=== PATIENT | male | born 1960 | race Caucasian/White ===

== ENCOUNTER 2016-08-27 03:46 | Inpatient (IN) ==
[2016-08-27] MEDS ORDERED: XOPENEX 1.25 MG NEB STA (03:59)
[2016-08-27 04:21] LABS: BASOPHILS # (AUTO) 0.1 K/uL (0-0.2); BASOPHILS % (AUTO) 0.8 % (0.0-3.0); EOSINOPHILS % (AUTO) 8.4 % (0.0-7.0); HEMATOCRIT 29.8 % (42.0-52.0); IMMATURE GRANULOCYTE % (AUTO) 0.3 % (0.0-5.0); LYMPHOCYTES # (AUTO) 1.9 K/uL (0.60-3.4); LYMPHOCYTES % (AUTO) 16.3 (10.0-50.0); MEAN CORPUSCULAR HEMOGLOBIN 28.3 pg (27.0-31.0); MEAN CORPUSCULAR HGB CONC 33.6 (31.8-35.4); MEAN CORPUSCULAR VOLUME 84.4 fl (80.0-94.0); MONOCYTES # (AUTO) 0.9 K/uL (0.4-2.0); MONOCYTES % (AUTO) 7.8 (0-10); NEUTROPHILS # (AUTO) 7.8 K/ul (2.0-6.9); NEUTROPHILS % (AUTO) 66.4; PLATELET COUNT 325 10^3/uL (140-440); RED BLOOD COUNT 3.53 10^6/ul (4.70-6.10); WHITE BLOOD COUNT 11.72 K/ul (4.2-10.2)
[2016-08-27 04:34] LABS: ABG BASE EXCESS -1 (-2.0-2.0); ABG HCO3 23.1 (22.0-26.0); ABG PCO2 34.7 mmHg (35-45); ABG PH 7.432 (7.35-7.45); ABG TCO2 24 (22.0-28.0)
[2016-08-27 04:56] LABS: TROPONIN I 0.028 ng/ml (0.0000-0.4000)
[2016-08-27 05:03] LABS: CREATINE KINASE MB 4.7 ng/ml (0.0-3.6)
--- NOTE | 2016-08-27 05:04 | CT ---
EXAM: CT chest without intravenous contrast 08/27/2016. Sagittal and coronal reformatted images ob tained HISTORY: Dyspnea COMPARISON: 10/12/2014 FINDINGS: The heart size appears within normal limits. There is no pericardial effusion. Emphysema. Innumerable small nodular densities are present within both lungs. This is upper lobe predominant a nd slightly more prominent on the right. Nodular and subtle ground-glass densities involve all lobe s of both lungs. The appearance is suggestive of nodular interstitial pneumonia. There is no focal pulmonary consolidation. No pleural effusion or pneumothorax. . IMPRESSION: 1. Emphysema. 2. Bilateral nodular ground-glass infiltrates likely due to nodular interstitial pneumonia. 3. Follow-up would be of benefit following appropriate medical management to document resolution.
[2016-08-27 05:06] LABS: ALBUMIN 2.7 g/dL (3.4-5.0); ALBUMIN/GLOBULIN RATIO 0.59; BILIRUBIN,TOTAL 0.37 mg/dL (0.00-1.20); BUN/CREATININE RATIO 15.71; CALCIUM 8.4 mg/dL (8.2-10.2); CREATININE 1.4 mg/dL (0.60-1.10); TOTAL PROTEIN 7.3 g/dL (6.4-8.2)
--- NOTE | 2016-08-27 05:22 | ED.PDOC ---
General ED Provider: Dr. JOSSELINE FLORES-ER Chief Complaint: Shortness of Air Stated Complaint: im coughing up green sputum and sob0--dr harden started me on keflex .. Time Seen by Physician: 03:50 Mode of Arrival: Wheelchair Information Source: Patient Exam Limitations: No limitations Primary Care Provider: JOSSELINE FLORES Nursing and Triage Documentation Reviewed and Agree: Yes Respiratory Complaint Exam - Respiratory Complaint/Exam Onset/Duration: 5 days Symptoms Are: Still present Initial Severity: Mild Current Severity: Moderate Location: Chest Character: Reports: Productive cough Aggravating: Reports: URI Alleviating: Reports: None Associated Signs and Symptoms: Reports: Dyspnea, URI, Sore throat, Decreased oral intake. Denies: Rapid breathing, Fever, Chills, Chest pain, Pleuritic chest pain, Wheezing, Hemoptysis, Dizziness, Calf pain, Calf swelling, Edema, Nasal congestion, Sinus discomfort, Vomiting, Weight loss, Increased thirst, Increased appetite, Increased urination Related History: Reports: Similar episode History of Healthcare-Acquired Pneumonia: No Related Surgical History: Reports: Renal Failure Pulmonary Embolism Risk Factors: None Tuberculosis Risk Factors: Reports: Chronic Resp. Faliure Status Asthmaticus Risk Factors: Reports: None Home Oxygen Use: No Recent Stress Test: No Recent Echo/LV Function: No Current Antibiotic Use: Yes Current Asthma Medication Use: No Respiratory Distress: Mild Inadequate Respiratory Effort: No Dysphagia Present: No Stridor Present: No JVD Present: No Accessory Muscle Use: No Retractions: Not Present Diminished Breath Sounds: No Sinus Tenderness: None Grunting Respirations: No Kussmaul Respirations: No Differential Diagnoses: COPD Exacerbation, Pneumonia, Bronchitis Non-Traumatic Chest Pain Syncope: EKG Performed Review of Systems - Review Of Systems Constitutional: Reports: No symptoms Eyes: Reports: No symptoms Ears, Nose, Mouth, Throat: Reports: No symptoms Respiratory: Reports: Cough, Short of air, Wheezing Cardiac: Reports: No symptoms GI: Reports: No symptoms : Reports: No symptoms Musculoskeletal: Reports: No symptoms Skin: Reports: No symptoms Neurological: Reports: No symptoms Endocrine: Reports: No symptoms Hematologic/Lymphatic: Reports: No symptoms All Other Systems: Reviewed and Negative Past Medical History - Past Medical History Previously Healthy: Yes Endocrine: Reports: DM 2 Cardiovascular: Reports: None Respiratory: Reports: None Hematological: Reports: None Gastrointestinal: Reports: None Genitourinary: Reports: None Neuro/Psych: Reports: None Musculoskeletal: Reports: Other Cancer: Reports: None - Surgical History General Surgical History: Reports: None - Family History Family History: Reports: None - Social History Smoking Status: Former smoker, Chews tobacco Hx Substance Use: No Alcohol Screening: None Lives: With family - Immunizations Tetanus Shot up to Date: Yes Physical Exam - Physical Exam Appearance: Well-appearing, No pain distress, Well-nourished Eyes: JORY, EOMI, Conjunctiva clear ENT: Ears normal, Nose normal, Oropharynx normal Neck: Supple Respiratory: Airway patent, Breath sounds diminished, Crackles, Rhonchi Cardiovascular: RRR, Pulses normal, No rub, No murmur, Tachycardia GI/: Soft, Nontender, No masses, Bowel sounds normal, No Organomegaly Musculoskeletal: Normal strength Skin: Warm, Dry, Normal color Neurological: Sensation intact, Motor intact, Reflexes intact, Cranial nerves intact, Alert, Oriented Psychiatric: Affect appropriate, Mood appropriate Interpretation - Radiology Interpretation Radiology Interpretation By: Radiologist Radiology Results: Positive Exam Interpreted: CT Scan - EKG Interpretation Time of EKG #1: 05:25 Rate: Tachy Rhythm: Sinus Ectopy: None [place]: [place] ST Segment: Normal Critical Care Note - Critical Care Note Total Time (mins): 0 Course - Course Hematology/Chemistry: 08/27/16 04:15 08/27/16 04:15 Orders, Labs, Meds: Lab Review 08/27/16 08/27/16 08/27/16 03:57 04:15 04:35 WBC 11.72 H RBC 3.53 L Hgb 10.0 L Hct 29.8 L MCV 84.4 MCH 28.3 MCHC 33.6 RDW Coeff of [place]ison 15.3 H Plt Count 325 Immature Gran % (Auto) 0.3 Neut % (Auto) 66.4 Lymph % (Auto) 16.3 [place] % (Auto) 7.8 Eos % (Auto) 8.4 H Baso % (Auto) 0.8 Immature Gran # (Auto) 0.0 Neut # 7.8 H Lymph # 1.9 [place] # 0.9 Eos # 1.0 H Baso # 0.1 D-Dimer 1.04 Puncture Site Lb O2 Saturation 98.0 ABG pH 7.432 ABG pCO2 34.7 L ABG pO2 93.0 ABG HCO3 23.1 ABG Total CO2 24 ABG Base Excess -1 [place] Test + FiO2 % 21.0 Sodium 138 Potassium 4.0 Chloride 107 Carbon Dioxide 23 Anion Gap 12.0 BUN 22 H Creatinine 1.40 H Estimated GFR (MDRD) 52.00 BUN/Creatinine Ratio 15.71 Glucose 213 H Lactic Acid 10.4 Calcium 8.4 Total Bilirubin 0.37 AST 20 ALT 21 Alkaline Phosphatase 110 Total Creatine Kinase 240 CK-MB (CK-2) 4.7 H CK-MB (CK-2) % 1.92049 Troponin I 0.0280 B-Natriuretic Peptide 101 H Total Protein 7.3 Albumin 2.7 L Globulin 4.6 Albumin/Globulin Ratio 0.59 Orders Category Date Time Status ABG DRAW REQUEST Stat CARDIO 08/27/16 03:58 Completed EKG-(ED ONLY) Stat CARDIO 08/27/16 03:58 Completed NEBULIZER TREATMENT Stat CARDIO 08/27/16 03:59 Completed ABG Stat LAB 08/27/16 03:57 Completed BNP [B-TYPE NATRIURETIC PEPTIDE] Stat LAB 08/27/16 04:15 Completed CBC W/ AUTO DIFF Stat LAB 08/27/16 04:15 Completed COMPREHENSIVE METABOLIC PANEL Stat LAB 08/27/16 04:15 Completed CREATINE KINASE Stat LAB 08/27/16 04:15 Completed D-DIMER Stat LAB 08/27/16 04:15 Completed LACTIC ACID Stat LAB 08/27/16 04:35 Completed PROCALCITONIN Stat LAB 08/27/16 04:35 Received TROPONIN I Stat LAB 08/27/16 04:15 Completed Levalbuterol HCl [Xopenex 1.25 mg] MEDS 08/27/16 03:59 Discontinued 1 vial NEB ONCE STA CT CHEST W/O CONTRAST Stat RADS 08/27/16 03:59 Completed Medications Discontinued Medications Generic Name Dose Route Start Last Admin Trade Name Freq PRN Reason Stop Dose Admin Levalbuterol HCl 1 vial 08/27/16 03:59 08/27/16 04:32 Xopenex 1.25 Mg NEB 08/27/16 04:00 1 vial ONCE STA Administration Vital Signs: Temp Pulse Resp BP Pulse Ox 08/27/16 03:47 98.2 F 110 H 36 H 173/81 H 92 L Departure - Departure Time of Disposition: 05:25 Disposition: HOME SELF-CARE Discharge Problem: Pneumonia Qualifiers: Pneumonia type: due to unspecified organism Laterality: bilateral Lung location : unspecified part of lung Qualifier Code: (J18.9) Pneumonia, unspecified organism Instructions: Pneumonitis (ED) Condition: Fair Pt referred to PMD for follow-up: Yes Allergies/Adverse Reactions: Allergies Iodinated Contrast Media - Oral and Adverse Reaction (Verified 08/27/16 04:01) KIDNEYS FAIL Home Medications: Ambulatory Orders Sitagliptin Phosphate [Januvia] 25 mg PO DAILY 06/13/15 Aspirin [Aspirin EC] 81 mg PO DAILY 11/22/15 Atorvastatin Calcium [Lipitor] 5 mg PO BEDTIME 11/22/15 Acetaminophen [Tylenol] 650 mg PO Q4H PRN 08/27/16 Amoxicillin/Potassium Clav [Augmentin 875-125 mg Tab] 1 tab PO Q12HR 08/27/16 Ergocalciferol (Vitamin D2) [Drisdol] 50,000 unit PO MONTHLY 08/27/16 Furosemide [Lasix Tab] 20 mg PO QDAC 08/27/16 Glimepiride [Amaryl] 2 mg PO BID 08/27/16 Metoprolol Succinate [Toprol Xl] 75 mg PO DAILY 08/27/16 Oxycodone HCl/Acetaminophen [Oxycodon-Acetaminophen 7.5-325] 1 each PO Q6H PRN 08/27/16 Disposition Discussed With: Patient, Family
[2016-08-27] MEDS ORDERED: ROCEPHIN 1 GM in SODIUM CHLORIDE 100 ML IV SCH (05:30)
[2016-08-27] MEDS ORDERED: TYLENOL PO PRN (05:30)
[2016-08-27] MEDS ORDERED: DRISDOL PO SCH (05:30)
[2016-08-27] MEDS ORDERED: PERCOCET 7.5-325 PO PRN (05:30)
[2016-08-27 06:37] VITALS: BMI 30.2
[2016-08-27] MEDS: LASIX TAB PO SCH (07:25)
[2016-08-27] MEDS ORDERED: ROCEPHIN ONE (07:30)
[2016-08-27] MEDS: DUONEB NEB SCH ×4 (07:35→23:30)
[2016-08-27] MEDS ORDERED: TOPROL XL PO SCH (08:00)
[2016-08-27] MEDS: AMARYL PO SCH ×2 (08:30→16:35)
[2016-08-27] MEDS ORDERED: JANUVIA PO SCH (09:00)
[2016-08-27] MEDS: TOPROL XL PO SCH ×2 (09:10)
[2016-08-27] MEDS: JANUVIA PO SCH (09:10)
[2016-08-27] MEDS: LOVENOX SUBCUT SCH (09:10)
[2016-08-27] MEDS: ASPIRIN EC PO SCH (09:11)
[2016-08-27] MEDS: ZITHROMAX 500 MG in SODIUM CHLORIDE 250 ML IV SCH (09:12)
[2016-08-27] MEDS: LIPITOR PO SCH (20:41)
[2016-08-28] MEDS: DUONEB NEB SCH ×3 (05:03→17:05)
[2016-08-28] MEDS: LASIX TAB PO SCH (05:43)
[2016-08-28 05:48] LABS: BASOPHILS # (AUTO) 0.1 K/uL (0-0.2); BASOPHILS % (AUTO) 0.7 % (0.0-3.0); EOSINOPHILS % (AUTO) 11.4 % (0.0-7.0); HEMATOCRIT 27.2 % (42.0-52.0); IMMATURE GRANULOCYTE % (AUTO) 0.3 % (0.0-5.0); LYMPHOCYTES # (AUTO) 2.8 K/uL (0.60-3.4); LYMPHOCYTES % (AUTO) 32.5 (10.0-50.0); MEAN CORPUSCULAR HEMOGLOBIN 28.3 pg (27.0-31.0); MEAN CORPUSCULAR HGB CONC 33.1 (31.8-35.4); MEAN CORPUSCULAR VOLUME 85.5 fl (80.0-94.0); MONOCYTES # (AUTO) 0.8 K/uL (0.4-2.0); MONOCYTES % (AUTO) 8.6 (0-10); NEUTROPHILS # (AUTO) 4.1 K/ul (2.0-6.9); NEUTROPHILS % (AUTO) 46.5; PLATELET COUNT 299 10^3/uL (140-440); RED BLOOD COUNT 3.18 10^6/ul (4.70-6.10); WHITE BLOOD COUNT 8.71 K/ul (4.2-10.2)
[2016-08-28 06:09] LABS: ALBUMIN 2.4 g/dL (3.4-5.0); ALBUMIN/GLOBULIN RATIO 0.57; BILIRUBIN,TOTAL 0.27 mg/dL (0.00-1.20); BUN/CREATININE RATIO 12.4; CALCIUM 8.2 mg/dL (8.2-10.2); CREATININE 1.29 mg/dL (0.60-1.10); TOTAL PROTEIN 6.6 g/dL (6.4-8.2)
[2016-08-28] MEDS: ROCEPHIN 1 GM in SODIUM CHLORIDE 100 ML IV SCH (08:05)
[2016-08-28] MEDS: ASPIRIN EC PO SCH (08:55)
[2016-08-28] MEDS: TOPROL XL PO SCH ×2 (08:55)
[2016-08-28] MEDS: AMARYL PO SCH ×2 (08:55→17:14)
[2016-08-28] MEDS: JANUVIA PO SCH (09:02)
[2016-08-28] MEDS: LOVENOX SUBCUT SCH (09:03)
[2016-08-28] MEDS: ZITHROMAX 500 MG in SODIUM CHLORIDE 250 ML IV SCH (09:04)
[2016-08-28] MEDS: SODIUM CHLORIDE 1,000 ML IV SCH ×2 (13:27)
[2016-08-28] MEDS: LIPITOR PO SCH (20:19)
[2016-08-28] MEDS: ATIVAN PO SCH (21:11)
[2016-08-29] MEDS: DUONEB NEB SCH ×4 (00:05→18:07)
[2016-08-29] MEDS: LASIX TAB PO SCH (05:45)
[2016-08-29] MEDS: ROCEPHIN 1 GM in SODIUM CHLORIDE 100 ML IV SCH (08:04)
[2016-08-29] MEDS: AMARYL PO SCH ×2 (08:05→16:47)
[2016-08-29] MEDS: JANUVIA PO SCH (08:05)
[2016-08-29 08:06] LABS: ALBUMIN 2.3 g/dL (3.4-5.0); ALBUMIN/GLOBULIN RATIO 0.53; ANION GAP 11.7; BASOPHILS # (AUTO) 0.1 K/uL (0-0.2); BILIRUBIN,TOTAL 0.22 mg/dL (0.00-1.20); BUN/CREATININE RATIO 11.86; CALCIUM 8.6 mg/dL (8.2-10.2); CREATININE 1.18 mg/dL (0.60-1.10); EOSINOPHILS % (AUTO) 11.4 % (0.0-7.0); HEMATOCRIT 28.7 % (42.0-52.0); HEMOGLOBIN 9.3 g/dl (14.0-18.0); IMMATURE GRANULOCYTE % (AUTO) 0.5 % (0.0-5.0); LYMPHOCYTES % (AUTO) 23.1 (10.0-50.0); MEAN CORPUSCULAR HEMOGLOBIN 27.9 pg (27.0-31.0); MEAN CORPUSCULAR HGB CONC 32.4 (31.8-35.4); MEAN CORPUSCULAR VOLUME 86.2 fl (80.0-94.0); MONOCYTES # (AUTO) 0.8 K/uL (0.4-2.0); MONOCYTES % (AUTO) 9.2 (0-10); NEUTROPHILS # (AUTO) 4.8 K/ul (2.0-6.9); NEUTROPHILS % (AUTO) 54.8; PLATELET COUNT 331 10^3/uL (140-440); POTASSIUM 4.7 mmol/L (3.5-5.1); RED BLOOD COUNT 3.33 10^6/ul (4.70-6.10); TOTAL PROTEIN 6.6 g/dL (6.4-8.2); WHITE BLOOD COUNT 8.72 K/ul (4.2-10.2)
[2016-08-29] MEDS: ASPIRIN EC PO SCH (08:06)
[2016-08-29] MEDS: TOPROL XL PO SCH ×2 (08:07)
[2016-08-29] MEDS: LOVENOX SUBCUT SCH (08:08)
[2016-08-29] MEDS: ZITHROMAX 500 MG in SODIUM CHLORIDE 250 ML IV SCH (09:30)
[2016-08-29] MEDS: ATIVAN PO SCH (09:30)
[2016-08-29] MEDS: LIPITOR PO SCH (20:56)
[2016-08-30] MEDS: DUONEB NEB SCH ×4 (04:55→16:38)
[2016-08-30] MEDS: LASIX TAB PO SCH (05:40)
[2016-08-30 07:53] LABS: BASOPHILS # (AUTO) 0.1 K/uL (0-0.2); BASOPHILS % (AUTO) 0.7 % (0.0-3.0); EOSINOPHILS # (AUTO) 0.9 K/ul (0.0-0.7); EOSINOPHILS % (AUTO) 10.6 % (0.0-7.0); HEMATOCRIT 29.8 % (42.0-52.0); HEMOGLOBIN 9.7 g/dl (14.0-18.0); IMMATURE GRANULOCYTE % (AUTO) 0.5 % (0.0-5.0); LYMPHOCYTES # (AUTO) 2.6 K/uL (0.60-3.4); LYMPHOCYTES % (AUTO) 29.9 (10.0-50.0); MEAN CORPUSCULAR HEMOGLOBIN 28.1 pg (27.0-31.0); MEAN CORPUSCULAR HGB CONC 32.6 (31.8-35.4); MEAN CORPUSCULAR VOLUME 86.4 fl (80.0-94.0); MONOCYTES # (AUTO) 0.8 K/uL (0.4-2.0); MONOCYTES % (AUTO) 9.1 (0-10); NEUTROPHILS # (AUTO) 4.3 K/ul (2.0-6.9); NEUTROPHILS % (AUTO) 49.2; PLATELET COUNT 345 10^3/uL (140-440); RED BLOOD COUNT 3.45 10^6/ul (4.70-6.10); WHITE BLOOD COUNT 8.69 K/ul (4.2-10.2)
[2016-08-30] MEDS: AMARYL PO SCH ×2 (08:07→17:09)
[2016-08-30] MEDS: ROCEPHIN 1 GM in SODIUM CHLORIDE 100 ML IV SCH (08:07)
[2016-08-30] MEDS: ASPIRIN EC PO SCH (08:07)
[2016-08-30] MEDS: TOPROL XL PO SCH ×2 (08:08)
[2016-08-30] MEDS: JANUVIA PO SCH (08:08)
[2016-08-30] MEDS: ATIVAN PO SCH (08:11)
[2016-08-30] MEDS: LOVENOX SUBCUT SCH (08:11)
[2016-08-30 08:17] LABS: ALBUMIN 2.4 g/dL (3.4-5.0); ALBUMIN/GLOBULIN RATIO 0.52; ANION GAP 10.6; BILIRUBIN,TOTAL 0.24 mg/dL (0.00-1.20); BUN/CREATININE RATIO 11.71; CALCIUM 8.5 mg/dL (8.2-10.2); CREATININE 1.28 mg/dL (0.60-1.10); POTASSIUM 4.6 mmol/L (3.5-5.1)
--- NOTE | 2016-08-30 09:10 | DI ---
EXAM: Chest two views HISTORY: Follow up pneumonia COMPARISON: CT 08/27/2016 TECHNIQUE: Two views chest were performed FINDINGS: Minimal right upper lobe ground-glass nodularity. There is no pleural effusion or pneumo thorax. The heart is normal in size. The mediastinal contour is normal. There are no acute abnorm alities of the bones. IMPRESSION: Minimal right upper lobe ground-glass nodularity, likely corresponds with interstitial pneumonia described on CT. Recommend follow-up.
[2016-08-30] MEDS: ZITHROMAX 500 MG in SODIUM CHLORIDE 250 ML IV SCH (09:30)
[2016-08-30 17:42] VITALS: BP 156/88; TEMP 97.7
--- NOTE | 2016-10-15 11:10 | HP ---
CHIEF COMPLAINT: " I am short of breath and I'm coughing up stuff." DISCUSSION: This is a 56 year old gentleman with a history of chronic diabetic ulcer, type two diabetes, peripheral vascular disease who recently saw Dr. Qu[facility]. He has been coughing up some green sputum and had been very short of breath. At home he had had low grade fever as well. In the emergency department he was evaluate. X-ray did reveal evidence of pneumonia and because he has failed outpatient antibiotics he was admitted for IV antibiotic therapy and treatment of his pneumonia. MEDICATIONS: Januvia Coated Aspirin Lipitor Augment Lasix Amaryl Toprol Oxycodone ALLERGIES: Contrast dye PAST MEDICAL HISTORY: Type 2 diabetes Hyperlipidemia Peripheral vascular disease History of chronic diastolic congestive failure SURGICAL HISTORY: Diabetic foot ulcer with debridement SOCIAL HISTORY: The patient is and previous smoker, no alcohol or illicit drug use noted. FAMILY HISTORY: Review and thought not to be pertinent to discussion. REVIEW OF SYSTEMS: He has had no grade fevers, Chills, productive cough. Denies any chest pain except when coughing, no headaches, visual changes, tinnitus, hemoptysis, no abdominal pain, blood in the stool, urinary symptoms or seizures. PHYSICAL EXAMINATION: V/S: Temperature 100, respiration 18, pulse 113 and blood pressure 139/87 HEENT: Pupils are round. NECK: Supple. CHEST: Scattered bronchi with a few breaths. CARDIOVASCULAR: Regular rate and rhythm. ABDOMEN: Soft, nontender. EXTREMITIES: Distal extremities without cyanosis or edema. ASSESSMENT: 1. Pneumonia, non improved as outpatient PLAN: 1. Admission 2. Antibiotics 3. Bronchial dilators 4. Follow him clinically and radiographically 5. Please see orders. MTDD
--- NOTE | 2016-10-15 11:23 | DS ---
PRINCIPAL DIAGNOSIS: 1. Pneumonia not responding to outpatient treatment. DISCUSSION: This is a 56 year old gentleman with a history of chronic diabetic ulcer, type two diabetes, peripheral vascular disease who recently saw Dr. Quiles at the [facility]. He has been coughing up some green sputum and had been very short of breath. At home he had had low grade fever as well. In the emergency department he was evaluate. X-ray did reveal evidence of pneumonia and because he has failed outpatient antibiotics he was admitted for IV antibiotic therapy and treatment of his pneumonia. CLINICAL COURSE: The patient was admitted to my service. We continued IV antibiotics. Clinically he seemed to improve. His lungs sounds improved, his cough got better and he did defervesce. A chest x-ray was obtained in followup which did reveal just a minimal infiltrate otherwise unremarkable. His oximetries were stable. At this point we felt that patient was stable for discharge. He will be discharged with antibiotics and will followup in one week. Please see orders. MTDD
== END 2016-08-30 19:24 | disposition home or self-care (01) | DRG 194 ==
LOC: ED 03:46 → MEDSURG B 05:28
PROVIDERS: ADMIT Family Medicine; ATTEND Family Medicine
DX: J18.9 Pneumonia, unspecified organism (principal); L97.429 Non-pressure chronic ulcer of left heel and midfoot with unspecified severity; E11.621 Type 2 diabetes mellitus with foot ulcer; I73.9 Peripheral vascular disease, unspecified; R06.02 Shortness of breath; F17.220 Nicotine dependence, chewing tobacco, uncomplicated; Z79.84 Long term (current) use of oral hypoglycemic drugs; Z79.899 Other long term (current) drug therapy
CPT/HCPCS: 36415; 80053; 82550; 82553; 82803; 82962; 83605; 83880; 84145; 84484; 85025; 85379; 87070; 87081; 87186; 93005; 93010; 94640; 97802; 99284

== ENCOUNTER 2016-09-08 02:45 | Emergency (ER) ==
[2016-09-08] MEDS ORDERED: XOPENEX 1.25 MG NEB STA (02:51)
[2016-09-08 02:53] VITALS: BMI 32.8
[2016-09-08 02:57] LABS: ABG BASE EXCESS -3 (-2.0-2.0); ABG PCO2 42.2 mmHg (35-45); ABG PH 7.342 (7.35-7.45)
[2016-09-08 02:58] LABS: ABG HCO3 22.9 (22.0-26.0); ABG TCO2 24 (22.0-28.0)
[2016-09-08 03:08] LABS: BASOPHILS # (AUTO) 0.1 K/uL (0-0.2); BASOPHILS % (AUTO) 0.9 % (0.0-3.0); EOSINOPHILS # (AUTO) 0.9 K/ul (0.0-0.7); EOSINOPHILS % (AUTO) 8.7 % (0.0-7.0); HEMATOCRIT 31.1 % (42.0-52.0); HEMOGLOBIN 10.4 g/dl (14.0-18.0); IMMATURE GRANULOCYTE % (AUTO) 0.3 % (0.0-5.0); LYMPHOCYTES # (AUTO) 2.7 K/uL (0.60-3.4); LYMPHOCYTES % (AUTO) 26.4 (10.0-50.0); MEAN CORPUSCULAR HEMOGLOBIN 28.3 pg (27.0-31.0); MEAN CORPUSCULAR HGB CONC 33.4 (31.8-35.4); MEAN CORPUSCULAR VOLUME 84.7 fl (80.0-94.0); MONOCYTES # (AUTO) 0.9 K/uL (0.4-2.0); MONOCYTES % (AUTO) 8.6 (0-10); NEUTROPHILS # (AUTO) 5.5 K/ul (2.0-6.9); NEUTROPHILS % (AUTO) 55.1; PLATELET COUNT 284 10^3/uL (140-440); RED BLOOD COUNT 3.67 10^6/ul (4.70-6.10); WHITE BLOOD COUNT 10.06 K/ul (4.2-10.2)
[2016-09-08] MEDS ORDERED: DUONEB NEB STA (03:17)
[2016-09-08 03:45] LABS: ALANINE AMINOTRANSFERASE 21 U/L (12-78); ALBUMIN 2.7 g/dL (3.4-5.0); ALBUMIN/GLOBULIN RATIO 0.59; ALKALINE PHOSPHATASE 109 U/L (50-136); ANION GAP 10.4; ASPARTATE AMINO TRANSFERASE 19 U/L (15-37); BILIRUBIN,TOTAL 0.32 mg/dL (0.00-1.20); BLOOD UREA NITROGEN 19 mg/dL (7-18); BUN/CREATININE RATIO 12.41; CALCIUM 9.1 mg/dL (8.2-10.2); CARBON DIOXIDE 24 mmol/L (21-32); CHLORIDE 108 mmol/L (98-107); CREATINE KINASE 158 U/L; CREATINE KINASE MB 4.3 ng/ml (0.0-3.6); CREATININE 1.53 mg/dL (0.60-1.10); GLUCOSE 145 mg/dL (70-100); POTASSIUM 4.4 mmol/L (3.5-5.1); SODIUM 138 mmol/L (136-145); TOTAL PROTEIN 7.3 g/dL (6.4-8.2)
--- NOTE | 2016-09-08 03:46 | CT ---
Exam: CT of the chest without contrast History: Dyspnea, recent pneumonia Technique: [address] of the chest with multiplanar reformations FINDINGS: The lung windows show mild apical emphysematous change. Subtle bilateral patchy ground-g lass opacities unchanged from 08/27/2016. No consolidative opacities are seen. No developing opaci ties since prior. No pleural fluid or septal thickening. Atherosclerotic calcification of the aort a without aneurysm. No pathologic lymph node enlargement or abundance. No acute findings of the ch est wall soft tissues or bony thorax. No acute findings of the upper abdomen. Impression: 1. Mild emphysematous change 2. Bilateral subtle patchy ground-glass opacities not significantly changed from 08/27/2016. No john perimposed consolidative opacities. Overall nonspecific finding could represent refractory infectio us pneumonia versus other chronic underlying lung disease.
[2016-09-08] MEDS ORDERED: DECADRON 4 MG/ML SDV IVP STA (03:55)
[2016-09-08] MEDS ORDERED: VANCOMYCIN 1 GM in SODIUM CHLORIDE 250 ML IV STA (03:56)
--- NOTE | 2016-09-08 05:15 | ED.PDOC ---
General ED Provider: Dr. JOSSELINE FLORES-ER Chief Complaint: Shortness of Air Stated Complaint: im coughing up thick stuff ..its green Time Seen by Physician: 02:50 Mode of Arrival: Wheelchair Information Source: Patient, Family Exam Limitations: No limitations Primary Care Provider: JOSSELINE FLORES Nursing and Triage Documentation Reviewed and Agree: Yes Respiratory Complaint Exam - Respiratory Complaint/Exam Onset/Duration: 2 days Symptoms Are: Still present Timing: Intermittent Initial Severity: Mild Current Severity: Mild Location: Chest Character: Reports: Productive cough Aggravating: Reports: URI Alleviating: Reports: None Associated Signs and Symptoms: Reports: Dyspnea, URI. Denies: Rapid breathing, Fever, Chills, Chest pain, Pleuritic chest pain, Wheezing, Hemoptysis, Dizziness , Calf pain, Calf swelling, Edema, Nasal congestion, Hoarseness, Sinus discomfort, Vomiting, Sore throat, Weight loss, Decreased oral intake, Increased thirst, Increased appetite, Increased urination Related History: Reports: Similar episode History of Healthcare-Acquired Pneumonia: Admit w/in last 30 days Related Surgical History: Reports: Renal Failure Pulmonary Embolism Risk Factors: None Cardiac Risk Factors: Reports: Elevated lipids, Diabetes, Hypertension Pseudomonas Risk Factors: Reports: None Tuberculosis Risk Factors: Reports: None Status Asthmaticus Risk Factors: Reports: None Home Oxygen Use: No Recent Stress Test: No Recent Echo/LV Function: No Current Antibiotic Use: Yes Current Asthma Medication Use: No Respiratory Distress: None Inadequate Respiratory Effort: No Dysphagia Present: No Stridor Present: No JVD Present: No Accessory Muscle Use: No Retractions: Not Present Diminished Breath Sounds: No Sinus Tenderness: None Grunting Respirations: No Kussmaul Respirations: No Differential Diagnoses: CHF, Pulmonary Edema, COPD Exacerbation, Pneumonia, Bronchitis Non-Traumatic Chest Pain Syncope: EKG Performed Review of Systems - Review Of Systems Constitutional: Reports: No symptoms Eyes: Reports: No symptoms Ears, Nose, Mouth, Throat: Reports: No symptoms Respiratory: Reports: Cough Cardiac: Reports: No symptoms GI: Reports: No symptoms : Reports: No symptoms Musculoskeletal: Reports: No symptoms Skin: Reports: No symptoms Neurological: Reports: No symptoms Endocrine: Reports: No symptoms Hematologic/Lymphatic: Reports: No symptoms All Other Systems: Reviewed and Negative Past Medical History - Past Medical History Previously Healthy: Yes Endocrine: Reports: DM 2 Cardiovascular: Reports: None Respiratory: Reports: None Hematological: Reports: None Gastrointestinal: Reports: None Genitourinary: Reports: None Neuro/Psych: Reports: None Musculoskeletal: Reports: Other Cancer: Reports: None - Surgical History General Surgical History: Reports: None - Family History Family History: Reports: None - Social History Smoking Status: Former smoker, Chews tobacco Hx Substance Use: No Alcohol Screening: None Lives: With family - Immunizations Tetanus Shot up to Date: Yes Physical Exam - Physical Exam Appearance: Well-appearing, No pain distress, Well-nourished Eyes: JORY, EOMI, Conjunctiva clear ENT: Ears normal, Nose normal, Oropharynx normal Neck: Supple Respiratory: Crackles, Rhonchi Cardiovascular: RRR, Pulses normal, No rub, No murmur GI/: Soft, Nontender, No masses, Bowel sounds normal, No Organomegaly Musculoskeletal: Normal strength, ROM intact, No edema, No calf tenderness Skin: Warm, Dry, Normal color Neurological: Sensation intact, Motor intact, Reflexes intact, Cranial nerves intact, Alert, Oriented Psychiatric: Affect appropriate Interpretation - Radiology Interpretation Radiology Interpretation By: Radiologist Radiology Results: Positive Exam Interpreted: CT Scan ("ground glass opacities") Re-Evaluation - Re-Evaluation Time of Re-Evaluation: 05:15 Status: Improved Vital Signs Stable: Yes Pain Level: 0 Appearance: NAD Lungs: Clear Skin: Warm and Dry Neuro: Alert and Oriented X3 CV: RRR Critical Care Note - Critical Care Note Total Time (mins): 0 Course - Course Hematology/Chemistry: 09/08/16 03:08 09/08/16 03:08 Orders, Labs, Meds: Lab Review 09/08/16 09/08/16 02:49 03:08 WBC 10.06 RBC 3.67 L Hgb 10.4 L Hct 31.1 L MCV 84.7 MCH 28.3 MCHC 33.4 RDW Coeff of [place]ison 15.0 H Plt Count 284 Immature Gran % (Auto) 0.3 Neut % (Auto) 55.1 Lymph % (Auto) 26.4 [place] % (Auto) 8.6 Eos % (Auto) 8.7 H Baso % (Auto) 0.9 Immature Gran # (Auto) 0.0 Neut # 5.5 Lymph # 2.7 [place] # 0.9 Eos # 0.9 H Baso # 0.1 D-Dimer 1.00 Puncture Site Rr O2 Saturation 91.0 L ABG pH 7.342 L ABG pCO2 42.2 ABG pO2 66.0 L ABG HCO3 22.9 ABG Total CO2 24 ABG Base Excess -3 L [place] Test + FiO2 % 21.0 Sodium 138 Potassium 4.4 Chloride 108 H Carbon Dioxide 24 Anion Gap 10.4 BUN 19 H Creatinine 1.53 H Estimated GFR (MDRD) 47.00 BUN/Creatinine Ratio 12.41 Glucose 145 H Calcium 9.1 Total Bilirubin 0.32 AST 19 ALT 21 Alkaline Phosphatase 109 Total Creatine Kinase 158 CK-MB (CK-2) 4.3 H CK-MB (CK-2) % 2.32364 Troponin I < 0.0100 B-Natriuretic Peptide 91 Total Protein 7.3 Albumin 2.7 L Globulin 4.6 Albumin/Globulin Ratio 0.59 Orders Category Date Time Status ABG DRAW REQUEST Stat CARDIO 09/08/16 02:49 Completed EKG-(ED ONLY) Stat CARDIO 09/08/16 02:49 Completed NEBULIZER TREATMENT Stat CARDIO 09/08/16 02:51 Completed NEBULIZER TREATMENT Stat CARDIO 09/08/16 03:17 Completed Brake Lining Curer [ED SHIFT SUPERVISOR RN APPLIED] .ONCE EMERGENCY 09/08/16 02:50 Active IV [ED IV/MEDIPORT/POWERPORT] .ONCE EMERGENCY 09/08/16 03:14 Active ABG Stat LAB 09/08/16 02:49 Completed BNP [B-TYPE NATRIURETIC PEPTIDE] Stat LAB 09/08/16 03:08 Completed CBC W/ AUTO DIFF Stat LAB 09/08/16 03:08 Completed COMPREHENSIVE METABOLIC PANEL Stat LAB 09/08/16 03:08 Completed CREATINE KINASE Stat LAB 09/08/16 03:08 Completed D-DIMER Stat LAB 09/08/16 03:08 Completed TROPONIN I Stat LAB 09/08/16 03:08 Completed 0.9 % Sodium Chloride [Saline Flush] MEDS 09/08/16 03:14 Ordered 1 syr IVF PRN PRN Dexamethasone 4 mg/ml Inj [Decadron 4 mg/ml Sdv] MEDS 09/08/16 03:55 Discontinued 4 mg IVP ONCE STA Ipratropium/Albuterol Neb [Duoneb] MEDS 09/08/16 03:17 Discontinued 1 vial NEB ONCE STA Levalbuterol HCl [Xopenex 1.25 mg] MEDS 09/08/16 02:51 Discontinued 1 vial NEB ONCE STA Vancomycin HCl [Vancomycin] 1 gm MEDS 09/08/16 03:56 Discontinued 0.9 % Sodium Chloride [Sodium Chloride] [address] CHEST W/O CONTRAST Stat RADS 09/08/16 03:14 Completed Medications Generic Name Dose Route Start Last Admin Trade Name Freq PRN Reason Stop Dose Admin Sodium Chloride 1 syr 09/08/16 03:14 09/08/16 04:07 Saline Flush IVF 1 syr PRN PRN Administration To flush IV Discontinued Medications Generic Name Dose Route Start Last Admin Trade Name Freq PRN Reason Stop Dose Admin Albuterol/Ipratropium 1 vial 09/08/16 03:17 09/08/16 03:30 Duoneb NEB 09/08/16 03:18 1 vial ONCE STA Administration Dexamethasone Sodium Phosphate 4 mg 09/08/16 03:55 09/08/16 04:05 Decadron 4 Mg/Ml Sdv IVP 09/08/16 03:56 4 mg ONCE STA Administration Vancomycin HCl 1 gm/ Sodium 250 mls @ 250 mls/hr 09/08/16 03:56 09/08/16 04: 15 Chloride IV 09/08/16 04:55 250 mls/hr ONCE STA Administration Levalbuterol HCl 1 vial 09/08/16 02:51 09/08/16 03:12 Xopenex 1.25 Mg NEB 09/08/16 02:52 1 vial ONCE STA Administration Vital Signs: Temp Pulse Resp BP Pulse Ox 09/08/16 02:46 98.2 F 104 H 32 H 189/103 H 91 L Departure - Departure Time of Disposition: 05:16 Disposition: TSF SHORT-TRM HOSP Discharge Problem: Acute respiratory failure Qualifiers: Respiratory failure complication: hypoxia Qualifier Code: (J96.01) Acute respiratory failure with hypoxia Pneumonia Qualifiers: Pneumonia type: due to unspecified organism Laterality: bilateral Lung location : unspecified part of lung Qualifier Code: (J18.9) Pneumonia, unspecified organism Instructions: Pneumonitis (ED) Condition: Fair Pt referred to PMD for follow-up: No Allergies/Adverse Reactions: Allergies Iodinated Contrast Media - Oral and Adverse Reaction (Verified 09/08/16 02:53) KIDNEYS FAIL Home Medications: Ambulatory Orders Sitagliptin Phosphate [Januvia] 25 mg PO DAILY 06/13/15 Aspirin [Aspirin EC] 81 mg PO DAILY 11/22/15 Atorvastatin Calcium [Lipitor] 5 mg PO BEDTIME 11/22/15 Acetaminophen [Tylenol] 650 mg PO Q4H PRN 08/27/16 Amoxicillin/Potassium Clav [Augmentin 875-125 mg Tab] 1 tab PO Q12HR 08/27/16 Ergocalciferol (Vitamin D2) [Drisdol] 50,000 unit PO MONTHLY 08/27/16 Furosemide [Lasix Tab] 20 mg PO QDAC 08/27/16 Glimepiride [Amaryl] 2 mg PO BID 08/27/16 Metoprolol Succinate [Toprol Xl] 75 mg PO DAILY 08/27/16 Oxycodone HCl/Acetaminophen [Oxycodon-Acetaminophen 7.5-325] 1 each PO Q6H PRN 08/27/16 Transfer Form Completed: Yes Disposition Discussed With: Patient, Family
[2016-09-08] MEDS ORDERED: SODIUM CHLORIDE 1,000 ML IV STA (05:23)
[2016-09-08 05:33] VITALS: BP 146/76; TEMP 98.6
== END 2016-09-08 06:05 | disposition short-term general hospital (02) ==
LOC: ED 02:45
DX: J96.01 Acute respiratory failure with hypoxia (principal); J18.9 Pneumonia, unspecified organism; E78.5 Hyperlipidemia, unspecified; E11.9 Type 2 diabetes mellitus without complications; I10 Essential (primary) hypertension; F17.220 Nicotine dependence, chewing tobacco, uncomplicated; Z79.899 Other long term (current) drug therapy
CPT/HCPCS: 36415; 80053; 82550; 82553; 82803; 83880; 84484; 85025; 85379; 93005; 93010; 94640; 96365; 96375; 99285

== ENCOUNTER 2016-09-23 08:14 | Emergency (ER) ==
--- NOTE | 2016-09-23 08:20 | ED.PDOC ---
General ED Provider: Dr. LINETTE WILSON JR Chief Complaint: Respiratory Complaint Stated Complaint: has soa-- states had to sleep sitting up past 3 nites-- recent pneumonia--states he feels like he might choke due to large amts thick mucous--also has wound to left foot due to diabetic ulcer-color pale--resp labored. [ End ]97.4 108 28 91% 178/96 11/28. 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 Appendectomy at 12 years old. HERNIA. LEFT FOOT/HEEL, SKIN GRAFT, BONE REMOVAL. [ End ]. dm anem chf footulcer. Transfered to [facility] room [address] Aponte. Report called to Isabel. IV NS infusing at 40 ml/hr, O2 at 2L per [place][End]09 08 16. doing better; no fever or dyspnea; states still coughing up yellow; states has not made follow up due to dr. aponte informing him to wait until after is visit with other md. encouraged to make follow up to ensure getting over pneumonia. [ End]09/03/16 Time Seen by Physician: 08:28 Mode of Arrival: Walk-In Information Source: Patient, Family Exam Limitations: No limitations, Clinical condition Primary Care Provider: JOSSELINE APONTE Nursing and Triage Documentation Reviewed and Agree: No Review of Systems - Review Of Systems Constitutional: Reports: Chills, Malaise Eyes: Reports: No symptoms Ears, Nose, Mouth, Throat: Reports: Nose discharge Respiratory: Reports: Cough (productive), Short of air, Wheezing Cardiac: Reports: No symptoms GI: Reports: No symptoms : Reports: No symptoms Musculoskeletal: Reports: No symptoms Skin: Reports: No symptoms Neurological: Reports: No symptoms Endocrine: Reports: No symptoms Hematologic/Lymphatic: Reports: No symptoms All Other Systems: Other (note foot ulcer) Past Medical History - Past Medical History Previously Healthy: Yes Endocrine: Reports: DM 2 Cardiovascular: Reports: None Respiratory: Reports: None Hematological: Reports: None Gastrointestinal: Reports: None Genitourinary: Reports: None Neuro/Psych: Reports: None Musculoskeletal: Reports: Other Cancer: Reports: None - Surgical History General Surgical History: Reports: None - Family History Family History: Reports: None - Social History Smoking Status: Former smoker, Chews tobacco Hx Substance Use: No Alcohol Screening: None Physical Exam - Physical Exam Appearance: Ill-appearing, Thin Ill-appearing: Moderate Pain Distress: Moderate Neck: Supple Respiratory: Airway patent, Breath sounds diminished, Rhonchi Cardiovascular: RRR, Tachycardia GI/: Soft, Nontender Musculoskeletal: Normal strength, ROM intact, No edema Skin: Warm, Dry (note left footbandaged) Psychiatric: Anxious Interpretation - EKG Interpretation Time of EKG #1: 08:35 Rate: Tachy Rhythm: Sinus [place]: Left ST Segment: Other (old ant [place]) Re-Evaluation - Re-Evaluation Time of Re-Evaluation: 10:11 Status: Improved Critical Care Note - Critical Care Note Total Time (mins): 20 Course - Course Hematology/Chemistry: 09/23/16 09:00 09/23/16 09:00 Orders, Labs, Meds: Lab Review 09/23/16 09/23/16 08:34 09:00 WBC 12.84 H RBC 3.50 L Hgb 10.0 L Hct 30.6 L MCV 87.4 MCH 28.6 MCHC 32.7 RDW Coeff of Addison 14.4 Plt Count 314 Immature Gran % (Auto) 0.5 Neut % (Auto) 69.1 Lymph % (Auto) 16.6 [place] % (Auto) 6.5 Eos % (Auto) 6.7 Baso % (Auto) 0.6 Immature Gran # (Auto) 0.1 Neut # 8.9 H Lymph # 2.1 [place] # 0.8 Eos # 0.9 H Baso # 0.1 Puncture Site Rr O2 Saturation 88.0 L ABG pH 7.331 L ABG pCO2 42.8 ABG pO2 59.0 L* ABG HCO3 22.6 ABG Total CO2 24 ABG Base Excess -3 L Mayito Test + FiO2 % 21.0 Sodium 138 Potassium 4.1 Chloride 105 Carbon Dioxide 25 Anion Gap 12.1 BUN 19 H Creatinine 1.80 H Estimated GFR (MDRD) 39.00 BUN/Creatinine Ratio 10.55 Glucose 156 H Lactic Acid 10.8 Calcium 8.9 Total Bilirubin 0.36 AST 27 ALT 27 Alkaline Phosphatase 109 Total Creatine Kinase 380 CK-MB (CK-2) 9.7 H* CK-MB (CK-2) % 2.36443 Troponin I 0.0150 B-Natriuretic Peptide 70 Total Protein 8.0 Albumin 2.7 L Globulin 5.3 Albumin/Globulin Ratio 0.51 Orders Category Date Time Status ABG DRAW REQUEST Stat CARDIO 09/23/16 08:35 Completed EKG-(ED ONLY) Stat CARDIO 09/23/16 08:33 Completed NEBULIZER TREATMENT Stat CARDIO 09/23/16 08:35 Completed ED APPLY O2 .ONCE EMERGENCY 09/23/16 08:33 Active ED 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 APPLIED .ONCE EMERGENCY 09/23/16 08:33 Active ED IV/MEDIPORT/POWERPORT .ONCE EMERGENCY 09/23/16 08:33 Active IV [ED IV/MEDIPORT/POWERPORT] .ONCE EMERGENCY 09/23/16 08:47 Inactive ABG Stat LAB 09/23/16 08:34 Completed B-TYPE NATRIURETIC PEPTIDE Stat LAB 09/23/16 09:00 Completed BLOOD CULTURE Stat LAB 09/23/16 09:00 Received CBC W/ AUTO DIFF Stat LAB 09/23/16 09:00 Completed COMPREHENSIVE METABOLIC PANEL Stat LAB 09/23/16 09:00 Completed CREATINE KINASE Stat LAB 09/23/16 09:00 Completed LACTIC ACID Stat LAB 09/23/16 09:00 Completed PROCALCITONIN Stat LAB 09/23/16 09:00 Received SPUTUM CULTURE Stat LAB 09/23/16 09:10 Received TROPONIN I Stat LAB 09/23/16 09:00 Completed 0.9 % Sodium Chloride [Saline Flush] MEDS 09/23/16 08:33 Active 1 syr IVF PRN PRN 0.9 % Sodium Chloride [Saline Flush] MEDS 09/23/16 08:47 Active 1 syr IVF PRN PRN Dexamethasone 4 mg/ml Inj [Decadron 4 mg/ml Sdv] MEDS 09/23/16 09:01 Discontinued 4 mg IVP ONCE STA Ipratropium/Albuterol Neb [Duoneb] MEDS 09/23/16 08:35 Discontinued 1 vial NEB ONCE STA Piperacillin Sodium/Tazobactam [Zosyn 4.5 gm] 4.5 gm MEDS 09/23/16 08:39 Discontinued 0.9 % Sodium Chloride [Sodium Chloride] 100 ml IV ONCE CHEST, 1V AP ONLY Stat RADS 09/23/16 08:33 Completed Medications Generic Name Dose Route Start Last Admin Trade Name Freq PRN Reason Stop Dose Admin Sodium Chloride 1 syr 09/23/16 08:33 09/23/16 09:18 Saline Flush IVF 1 syr PRN PRN Administration To flush IV Sodium Chloride 1 syr 09/23/16 08:47 Saline Flush IVF PRN PRN To flush IV Discontinued Medications Generic Name Dose Route Start Last Admin Trade Name Madonna PRN Reason Stop Dose Admin Albuterol/Ipratropium 1 vial 09/23/16 08:35 09/23/16 08:42 Duoneb NEB 09/23/16 08:36 1 vial ONCE STA Administration Dexamethasone Sodium Phosphate 4 mg 09/23/16 09:01 09/23/16 09:23 Decadron 4 Mg/Ml Sdv IVP 09/23/16 09:02 4 mg ONCE STA Administration Piperacillin Sod/Tazobactam 100 mls @ 100 mls/hr 09/23/16 08:39 09/23/16 09: 24 Sod 4.5 gm/ Sodium Chloride IV 09/23/16 09:38 100 mls/hr ONCE STA Administration Vital Signs: Temp Pulse Resp BP Pulse Ox 09/23/16 08:14 97.4 F L 108 H 28 H 178/96 H 91 L Departure - Departure Time of Disposition: 10:11 Disposition: HOME SELF-CARE Discharge Problem: Unresolved pneumonia Pneumonia involving right lung Qualifiers: Pneumonia type: due to unspecified organism Lung location: upper lobe of lung Qualifier Code: (J18.1) Lobar pneumonia, unspecified organism Instructions: Bacterial Pneumonia (ED) Condition: Good Pt referred to PMD for follow-up: Yes Additional Instructions: May use Duoneb instead of albuterol(not both) call PMD discuss follow up time return if fever over 101.0 if worsening shortness of breath antibiotic until gone Prescriptions: Amoxicillin/Potassium Clav [Augmentin 875-125 mg Tab] 1 tab PO BIDWM #14 tablet Ipratropium/Albuterol Neb [Duoneb] 1 vial NEB RTQ4H PRN #90 vial.neb PRN Reason: wheezing, while awake Allergies/Adverse Reactions: Allergies Iodinated Contrast Media - Oral and Adverse Reaction (Verified 09/23/16 08:28) KIDNEYS FAIL Home Medications: Ambulatory Orders Sitagliptin Phosphate [Januvia] 25 mg PO DAILY 06/13/15 Aspirin [Aspirin EC] 81 mg PO DAILY 11/22/15 Atorvastatin Calcium [Lipitor] 5 mg PO BEDTIME 11/22/15 Acetaminophen [Tylenol] 650 mg PO Q4H PRN 08/27/16 Ergocalciferol (Vitamin D2) [Drisdol] 50,000 unit PO MONTHLY 08/27/16 Furosemide [Lasix Tab] 20 mg PO QDAC 08/27/16 Glimepiride [Amaryl] 2 mg PO BID 08/27/16 Metoprolol Succinate [Toprol Xl] 75 mg PO DAILY 08/27/16 Oxycodone HCl/Acetaminophen [Oxycodon-Acetaminophen 7.5-325] 1 each PO Q6H PRN 08/27/16 Albuterol Sulfate 0.083% Neb [Albuterol 0.083% Neb] 1 vial NEB RTQ8H 09/23/16 Amoxicillin/Potassium Clav [Augmentin 875-125 mg Tab] 1 tab PO BIDWM #14 tablet 09/23/16 Ipratropium/Albuterol Neb [Duoneb] 1 vial NEB RTQ4H PRN #90 vial.neb 09/23/16 Levofloxacin [Levaquin] 500 mg PO QDAC 09/23/16
[2016-09-23 08:23] VITALS: BP 178/96; TEMP 97.4; BMI 31.4
[2016-09-23] MEDS ORDERED: DUONEB NEB STA ×2 (08:35→11:02)
[2016-09-23] MEDS ORDERED: ZOSYN 4.5 GM 4.5 GM in SODIUM CHLORIDE 100 ML IV STA (08:39)
[2016-09-23 08:50] LABS: ABG PH 7.331 (7.35-7.45)
[2016-09-23 08:51] LABS: ABG PCO2 42.8 mmHg (35-45)
[2016-09-23 08:52] LABS: ABG BASE EXCESS -3 (-2.0-2.0); ABG HCO3 22.6 (22.0-26.0); ABG TCO2 24 (22.0-28.0)
[2016-09-23] MEDS ORDERED: DECADRON 4 MG/ML SDV IVP STA (09:01)
[2016-09-23 09:03] LABS: BASOPHILS # (AUTO) 0.1 K/uL (0-0.2); BASOPHILS % (AUTO) 0.6 % (0.0-3.0); EOSINOPHILS # (AUTO) 0.9 K/ul (0.0-0.7); EOSINOPHILS % (AUTO) 6.7 % (0.0-7.0); HEMATOCRIT 30.6 % (42.0-52.0); IMMATURE GRANULOCYTE % (AUTO) 0.5 % (0.0-5.0); LYMPHOCYTES # (AUTO) 2.1 K/uL (0.60-3.4); LYMPHOCYTES % (AUTO) 16.6 (10.0-50.0); MEAN CORPUSCULAR HEMOGLOBIN 28.6 pg (27.0-31.0); MEAN CORPUSCULAR HGB CONC 32.7 (31.8-35.4); MEAN CORPUSCULAR VOLUME 87.4 fl (80.0-94.0); MONOCYTES # (AUTO) 0.8 K/uL (0.4-2.0); MONOCYTES % (AUTO) 6.5 (0-10); NEUTROPHILS # (AUTO) 8.9 K/ul (2.0-6.9); NEUTROPHILS % (AUTO) 69.1; PLATELET COUNT 314 10^3/uL (140-440); WHITE BLOOD COUNT 12.84 K/ul (4.2-10.2)
[2016-09-23] MEDS ORDERED: ZOSYN 4.5 GM 4.5 GM in SODIUM CHLORIDE 100 ML IV ONE (09:24)
--- NOTE | 2016-09-23 09:35 | DI ---
EXAM: Single AP view of the chest HISTORY: Chest pain. COMPARISON: Chest x-ray 08/30/[address] chest 09/08/2016 FINDINGS: Cardiomediastinal silhouette is unremarkable. There is no pneumothorax or pleural effusio n. There is no consolidation, nodule or mass. The ground-glass in the medial right upper lobe has minimally improved. The osseous structures are unremarkable. IMPRESSION: 1. Mild interval improvement in right upper lobe ground-glass and pleural thickening. 2. No acute consolidation is present.
[2016-09-23 09:58] LABS: ALBUMIN 2.7 g/dL (3.4-5.0); ALBUMIN/GLOBULIN RATIO 0.51; ANION GAP 12.1; BILIRUBIN,TOTAL 0.36 mg/dL (0.00-1.20); BUN/CREATININE RATIO 10.55; CALCIUM 8.9 mg/dL (8.2-10.2); CREATININE 1.8 mg/dL (0.60-1.10); POTASSIUM 4.1 mmol/L (3.5-5.1); TROPONIN I 0.015 ng/ml (0.0000-0.4000)
[2016-09-23 10:02] LABS: CREATINE KINASE MB 9.7 ng/ml (0.0-3.6)
== END 2016-09-23 12:00 | disposition home or self-care (01) ==
LOC: ED 08:14
DX: J18.1 Lobar pneumonia, unspecified organism (principal); R00.0 Tachycardia, unspecified; E11.621 Type 2 diabetes mellitus with foot ulcer; L97.529 Non-pressure chronic ulcer of other part of left foot with unspecified severity; Z79.899 Other long term (current) drug therapy; F17.220 Nicotine dependence, chewing tobacco, uncomplicated
CPT/HCPCS: 36415; 80053; 82550; 82553; 82803; 83605; 83880; 84145; 84484; 85025; 87040; 87070; 93005; 93010; 94640; 96365; 96375; 99283

== ENCOUNTER 2016-10-02 04:05 | Emergency (ER) ==
[2016-10-02 04:20] VITALS: BP 135/75; TEMP 98; BMI 32.8
[2016-10-02] MEDS ORDERED: DUONEB NEB STA ×2 (04:28→07:54)
[2016-10-02] MEDS ORDERED: SOLU-MEDROL 125 MG IVP STA (04:28)
--- NOTE | 2016-10-02 04:32 | ED.PDOC ---
General ED Provider: Dr. KARON KATZ Chief Complaint: Shortness of Air Stated Complaint: Been coughing, congested, short of breath. Time Seen by Physician: 04:30 Mode of Arrival: Walk-In Information Source: Patient Primary Care Provider: JOSSELINE FLORES Nursing and Triage Documentation Reviewed and Agree: Yes Respiratory Complaint Exam - Shortness of Air Complaint/Exam Symptoms Are: Still present Timing: Constant Initial Severity: Moderate Current Severity: Moderate Character: Reports: Dyspnea at rest Aggravating: Reports: Allergens, URI Alleviating: Reports: None Associated Signs and Symptoms: Reports: Cough, Nasal congestion. Denies: Wheezing, Chest pain with cough, Chest pain, Fever, Chills, Diaphoresis, Dizziness, Calf pain, Calf swelling, Edema, Rapid breathing, Labored breathing, Decreased intake Related History: Reports: Similar episode History of Healthcare-Acquired Pneumonia: No Pulmonary Embolism Risk Factors: Reports: None Cardiac Risk Factors: Reports: None Pseudomonas Risk Factors: Reports: None Tuberculosis Risk Factors: Reports: None Home Oxygen Use: No Recent Stress Test: No Recent Echo/LV Function: No Respiratory Distress: Mild Stridor Present: No Tracheal Deviation: No Subcutaneous Emphysema: No Accessory Muscle Use: Yes Retractions: Nasal Flaring, Supraclavicular Diminished Breath Sounds: Yes Prolonged Expiratory Phase: No Unable to Speak Full Sentences: Yes Fatigue: No Leg Swelling: No Lydia's Sign Present: No Grunting Respirations: No Differential Diagnoses: CHF, COPD Exacerbation, Pneumonia, Bronchitis Review of Systems - Review Of Systems Constitutional: Reports: Chills, Fever, Malaise, Weakness Eyes: Reports: No symptoms Ears, Nose, Mouth, Throat: Reports: No symptoms Respiratory: Reports: Cough, Short of air Cardiac: Reports: No symptoms GI: Reports: No symptoms : Reports: No symptoms Musculoskeletal: Reports: No symptoms Skin: Reports: No symptoms Neurological: Reports: No symptoms Endocrine: Reports: No symptoms Hematologic/Lymphatic: Reports: No symptoms All Other Systems: Reviewed and Negative Past Medical History - Past Medical History Previously Healthy: Yes Endocrine: Reports: DM 2 Cardiovascular: Reports: None Respiratory: Reports: None Hematological: Reports: None Gastrointestinal: Reports: None Genitourinary: Reports: None Neuro/Psych: Reports: None Musculoskeletal: Reports: Other Cancer: Reports: None - Surgical History General Surgical History: Reports: None - Family History Family History: Reports: None - Social History Smoking Status: Former smoker, Chews tobacco Hx Substance Use: No Alcohol Screening: None - Immunizations Tetanus Shot up to Date: Yes Physical Exam - Physical Exam Appearance: Ill-appearing, Obese Ill-appearing: Moderate Eyes: JORY, EOMI, Conjunctiva clear ENT: Ears normal, Nose normal, Oropharynx normal Respiratory: Breath sounds diminished, Crackles Cardiovascular: Tachycardia GI/: Soft, Nontender, No masses, Bowel sounds normal, No Organomegaly Musculoskeletal: Normal strength, ROM intact, No edema, No calf tenderness Skin: Warm, Dry, Normal color Neurological: Sensation intact, Motor intact, Reflexes intact, Cranial nerves intact, Alert, Oriented Psychiatric: Affect appropriate, Mood appropriate Interpretation - Radiology Interpretation Radiology Interpretation By: Radiologist Radiology Results: Positive Exam Interpreted: CT Scan Critical Care Note - Critical Care Note Total Time (mins): 0 Course - Course Hematology/Chemistry: 10/02/16 04:45 10/02/16 04:45 Orders, Labs, Meds: Lab Review 10/02/16 10/02/16 04:26 04:45 WBC 10.19 RBC 3.17 L Hgb 9.0 L Hct 28.1 L MCV 88.6 MCH 28.4 MCHC 32.0 RDW Coeff of [place] 14.0 Plt Count 285 Immature Gran % (Auto) 0.3 Neut % (Auto) 64.6 Lymph % (Auto) 17.9 [place] % (Auto) 8.8 Eos % (Auto) 7.9 H Baso % (Auto) 0.5 Immature Gran # (Auto) 0.0 Neut # 6.6 Lymph # 1.8 [place] # 0.9 Eos # 0.8 H Baso # 0.1 D-Dimer (Manual) 352.14 Puncture Site Lb O2 Saturation 92.0 L ABG pH 7.362 ABG pCO2 43.9 ABG pO2 65.0 L ABG HCO3 25 ABG Total CO2 26 ABG Base Excess 0 Mayito Test + FiO2 % 21.0 Sodium 138 Potassium 4.1 Chloride 106 Carbon Dioxide 26 Anion Gap 10.1 BUN 17 Creatinine 1.84 H Estimated GFR (MDRD) 38.00 BUN/Creatinine Ratio 9.23 Glucose 192 H Calcium 8.5 Total Bilirubin 0.25 AST 34 ALT 42 Alkaline Phosphatase 89 Total Creatine Kinase 437 CK-MB (CK-2) 6.3 H* CK-MB (CK-2) % 1.92992 Troponin I 0.0190 B-Natriuretic Peptide 39 Total Protein 6.8 Albumin 2.3 L Globulin 4.5 Albumin/Globulin Ratio 0.51 Orders Category Date Time Status ABG DRAW REQUEST Stat CARDIO 10/02/16 04:27 Completed EKG-(ED ONLY) Stat CARDIO 10/02/16 04:26 Completed NEBULIZER TREATMENT Stat CARDIO 10/02/16 04:29 Completed ED IV/MEDIPORT/POWERPORT .ONCE EMERGENCY 10/02/16 04:28 Active ABG Stat LAB 10/02/16 04:26 Completed B-TYPE NATRIURETIC PEPTIDE Stat LAB 10/02/16 04:45 Completed BLOOD CULTURE Stat LAB 10/02/16 05:00 Received CBC W/ AUTO DIFF Stat LAB 10/02/16 04:45 Completed COMPREHENSIVE METABOLIC PANEL Stat LAB 10/02/16 04:45 Completed CREATINE KINASE Stat LAB 10/02/16 04:45 Completed D-DIMER Stat LAB 10/02/16 04:45 Completed SPUTUM CULTURE Stat LAB 10/02/16 04:35 Received TROPONIN I Stat LAB 10/02/16 04:45 Completed 0.9 % Sodium Chloride [Saline Flush] MEDS 10/02/16 04:28 Ordered 1 syr IVF PRN PRN Ipratropium/Albuterol Neb [Duoneb] MEDS 10/02/16 04:28 Discontinued 1 vial NEB ONCE STA Methylprednisolone Sod Succ/Pf [Solu-Medrol 125 mg] MEDS 10/02/16 04:28 Discontinued 60 [address] IVP ONCE STA CT CHEST W/O CONTRAST Stat RADS 10/02/16 04:26 Taken Medications Generic Name Dose Route Start Last Admin Trade Name Freq PRN Reason Stop Dose Admin Sodium Chloride 1 syr 10/02/16 04:28 10/02/16 04:53 Saline Flush IVF 1 syr PRN PRN Administration To flush IV Discontinued Medications Generic Name Dose Route Start Last Admin Trade Name Freq PRN Reason Stop Dose Admin Albuterol/Ipratropium 1 vial 10/02/16 04:28 10/02/16 04:37 Duoneb NEB 10/02/16 04:29 1 vial ONCE STA Administration Methylprednisolone Sodium Succinate 60 mg 10/02/16 04:28 10/02/16 04:49 Solu-Medrol 125 Mg IVP 10/02/16 04:29 60 mg ONCE STA Administration Vital Signs: Temp Pulse Resp BP Pulse Ox 10/02/16 04:07 98 F 118 H 44 H 135/75 91 L Departure - Departure Time of Disposition: 06:43 Disposition: ADMITTED INPATIENT Discharge Problem: Pneumonia Qualifiers: Pneumonia type: due to unspecified organism Laterality: bilateral Lung location : lower lobe of lung Qualifier Code: (J18.9) Pneumonia, unspecified organism Discharge Problem: (Ruled Out): Pneumonia associated with positive cold agglutinins test Instructions: Community Acquired Pneumonia (ED) Condition: Stable Pt referred to PMD for follow-up: No Allergies/Adverse Reactions: Allergies Iodinated Contrast Media - Oral and Adverse Reaction (Verified 10/02/16 04:18) KIDNEYS FAIL Home Medications: Ambulatory Orders Sitagliptin Phosphate [Januvia] 25 mg PO DAILY 06/13/15 Aspirin [Aspirin EC] 81 mg PO DAILY 11/22/15 Atorvastatin Calcium [Lipitor] 5 mg PO BEDTIME 11/22/15 Acetaminophen [Tylenol] 650 mg PO Q4H PRN 08/27/16 Ergocalciferol (Vitamin D2) [Drisdol] 50,000 unit PO MONTHLY 08/27/16 Furosemide [Lasix Tab] 20 mg PO QDAC 08/27/16 Glimepiride [Amaryl] 2 mg PO BID 08/27/16 Metoprolol Succinate [Toprol Xl] 75 mg PO DAILY 08/27/16 Oxycodone HCl/Acetaminophen [Oxycodon-Acetaminophen 7.5-325] 1 each PO Q6H PRN 08/27/16 Albuterol Sulfate 0.083% Neb [Albuterol 0.083% Neb] 1 vial NEB Q4H PRN 09/23/16 Amoxicillin/Potassium Clav [Augmentin 875-125 mg Tab] 1 tab PO BIDWM #14 tablet 09/23/16 Ipratropium/Albuterol Neb [Duoneb] 1 vial NEB RTQ4H PRN #90 vial.neb 09/23/16 Levofloxacin [Levaquin] 500 mg PO QDAC 09/23/16 Disposition Discussed With: Patient, Family
[2016-10-02 04:45] LABS: ABG BASE EXCESS 0 (-2.0-2.0); ABG HCO3 25 (22.0-26.0); ABG PCO2 43.9 mmHg (35-45); ABG PH 7.362 (7.35-7.45); ABG TCO2 26 (22.0-28.0)
[2016-10-02 05:11] LABS: BASOPHILS # (AUTO) 0.1 K/uL (0-0.2); BASOPHILS % (AUTO) 0.5 % (0.0-3.0); EOSINOPHILS # (AUTO) 0.8 K/ul (0.0-0.7); EOSINOPHILS % (AUTO) 7.9 % (0.0-7.0); HEMATOCRIT 28.1 % (42.0-52.0); IMMATURE GRANULOCYTE % (AUTO) 0.3 % (0.0-5.0); LYMPHOCYTES # (AUTO) 1.8 K/uL (0.60-3.4); LYMPHOCYTES % (AUTO) 17.9 (10.0-50.0); MEAN CORPUSCULAR HEMOGLOBIN 28.4 pg (27.0-31.0); MEAN CORPUSCULAR VOLUME 88.6 fl (80.0-94.0); MONOCYTES # (AUTO) 0.9 K/uL (0.4-2.0); MONOCYTES % (AUTO) 8.8 (0-10); NEUTROPHILS # (AUTO) 6.6 K/ul (2.0-6.9); NEUTROPHILS % (AUTO) 64.6; PLATELET COUNT 285 10^3/uL (140-440); RED BLOOD COUNT 3.17 10^6/ul (4.70-6.10); WHITE BLOOD COUNT 10.19 K/ul (4.2-10.2)
[2016-10-02 05:48] LABS: ANION GAP 10.1; POTASSIUM 4.1 mmol/L (3.5-5.1)
[2016-10-02 05:49] LABS: ALBUMIN 2.3 g/dL (3.4-5.0); ALBUMIN/GLOBULIN RATIO 0.51; BILIRUBIN,TOTAL 0.25 mg/dL (0.00-1.20); BUN/CREATININE RATIO 9.23; CALCIUM 8.5 mg/dL (8.2-10.2); CREATININE 1.84 mg/dL (0.60-1.10); TOTAL PROTEIN 6.8 g/dL (6.4-8.2); TROPONIN I 0.019 ng/ml (0.0000-0.4000)
[2016-10-02 05:51] LABS: CREATINE KINASE MB 6.3 ng/ml (0.0-3.6)
--- NOTE | 2016-10-02 07:18 | CT ---
EXAM: CT of the chest without contrast. HISTORY: Coughing. Shortness of breath. PROCEDURE: Contiguous axial CT images of the chest without contrast with coronal and sagittal refor mats. FINDINGS: The heart is within normal limits in size. The thoracic aorta is within normal limits in diameter. There are calcified hilar lymph nodes. There is bleb formation in the upper lobes. There are bilateral infiltrates. There is minimal consolidation in the right upper lobe. There are degene rative changes in the spine. The adrenal glands and liver are normal in appearance. Impression: Bilateral infiltrates and minimal right upper lobe consolidation consistent with pneumo soo.
[2016-10-02] MEDS ORDERED: VANCOMYCIN 1 GM in SODIUM CHLORIDE 250 ML IV STA (08:06)
== END 2016-10-02 09:45 | disposition short-term general hospital (02) ==
LOC: ED 04:05
DX: J18.9 Pneumonia, unspecified organism (principal); E11.9 Type 2 diabetes mellitus without complications; R00.0 Tachycardia, unspecified; F17.220 Nicotine dependence, chewing tobacco, uncomplicated; Z79.899 Other long term (current) drug therapy
CPT/HCPCS: 36415; 80053; 82550; 82553; 82803; 83605; 83880; 84145; 84484; 85025; 85379; 87040; 87070; 93005; 93010; 94640; 96365; 96375; 99285

== ENCOUNTER 2016-10-02 09:44 | Outpatient (CLI) ==
[2016-10-02 04:20] VITALS: BMI 32.8
== END 2016-10-02 09:45 | disposition home or self-care (01) ==
LOC: AMBL 09:44
PROVIDERS: ATTEND Internal Medicine
DX: R06.02 Shortness of breath (principal); S91.302A Unspecified open wound, left foot, initial encounter

== ENCOUNTER 2017-06-28 05:16 | Emergency (ER) ==
[2017-06-28] MEDS ORDERED: VANCOMYCIN 1,000 MG in SODIUM CHLORIDE 200 ML IV STA (05:35)
[2017-06-28] MEDS ORDERED: BUMEX IVP STA (05:36)
[2017-06-28] MEDS ORDERED: VANCOMYCIN ONE ×2 (05:47→06:53)
--- NOTE | 2017-06-28 05:47 | ED.PDOC ---
General ED Provider: Dr. JOSSELINE FLORES-ER Chief Complaint: Shortness of Air Stated Complaint: has diabetic ulcer--presents with confusion, fever, sob Time Seen by Physician: 05:30 Mode of Arrival: Walk-In Information Source: Patient, Family Exam Limitations: No limitations Primary Care Provider: JOSSELINE FLORES Nursing and Triage Documentation Reviewed and Agree: Yes Reviewed sepsis parameters & appropriate labs ordered?: Yes System Inflammatory Response Syndrome: Not Applicable Sepsis Protocol: For patient's 13 years and over: Temp is 96.8 and below OR 101 and greater Pulse >90 BPM Resp >20/minute Acutely Altered Mental Status Are patient's symptoms suggestive of a new infection, such as: -Pneumonia -Skin, Soft Tissue -Endocarditis -UTI -Bone, Joint Infection -Implantable Device -Acute Abdominal Infection -Wound Infection -Meningitis -Blood Stream Catheter Infection -Unknown Neurological Complaint Exam - Altered Mental Status Complaint/Exam Current Mental Status: Confusion Last Known Well: yesterday Onset: Gradual Symptoms Are: Still present Initial Severity: Mild Current Severity: Moderate Eye Deviation Present: No Character: Reports: Confusion Aggravating: Reports: None Alleviating: Reports: None Associated Signs and Symptoms: Reports: Fever, Illness Related History: Reports: Similar episode Cardiac Risk Factors: Reports: Hypertension, Diabetes Related Surgical History: Reports: None Carotid Bruit Present: No Nystagmus Present: No Gag Reflex Present: Yes Meningeal Signs Positive: No Focal Weakness: Present: None Focal Sensory Loss: Present: None Gait: Normal [id number]: Normal Findings Romberg Test Positive: No Babinski Sign: Negative Right Heel to Toe Normal: Yes Signs of Injury: Present: Normal findings Thrombolytics Considered: No Differential Diagnoses: Sepsis Review of Systems - Review Of Systems Constitutional: Reports: Chills, Fever, Weakness Eyes: Reports: No symptoms Ears, Nose, Mouth, Throat: Reports: No symptoms Respiratory: Reports: Short of air Cardiac: Reports: No symptoms GI: Reports: No symptoms : Reports: No symptoms Musculoskeletal: Reports: No symptoms Skin: Reports: Other Neurological: Reports: Cognitive dysfunction, Weakness Endocrine: Reports: No symptoms Hematologic/Lymphatic: Reports: No symptoms All Other Systems: Reviewed and Negative Past Medical History - Past Medical History Previously Healthy: Yes Endocrine: Reports: DM 2 Cardiovascular: Reports: None Respiratory: Reports: None Hematological: Reports: None Gastrointestinal: Reports: None Genitourinary: Reports: None Neuro/Psych: Reports: None Musculoskeletal: Reports: Other Cancer: Reports: None - Surgical History General Surgical History: Reports: None - Family History Family History: Reports: None - Social History Smoking Status: Former smoker, Dips snuff Hx Substance Use: No Alcohol Screening: None Lives: With family - Immunizations Tetanus Shot up to Date: Yes Physical Exam - Physical Exam Appearance: Well-appearing, No pain distress, Well-nourished Eyes: JORY, EOMI, Conjunctiva clear ENT: Ears normal, Nose normal, Oropharynx normal Neck: Supple Respiratory: Airway patent, Breath sounds clear, Breath sounds equal, Respirations nonlabored Cardiovascular: RRR, Pulses normal, No rub, No murmur GI/: Soft, Nontender, No masses, Bowel sounds normal, No Organomegaly Musculoskeletal: Normal strength, ROM intact, No edema, No calf tenderness Skin: Warm, Dry, Normal color Neurological: Sensation intact, Motor intact, Reflexes intact, Cranial nerves intact, Alert, Disoriented Psychiatric: Affect appropriate Critical Care Note - Critical Care Note Total Time (mins): 30 Course - Course Hematology/Chemistry: 06/28/17 06:12 Orders, Labs, Meds: Lab Review 06/28/17 06/28/17 06/28/17 05:33 06:12 06:12 WBC 11.62 H RBC 2.58 L Hgb 7.3 L Hct 22.2 L MCV 86.0 MCH 28.3 MCHC 32.9 RDW Coeff of Addison 13.4 Plt Count 356 Immature Gran % (Auto) 0.4 Neut % (Auto) 86.3 Lymph % (Auto) 5.9 L [place] % (Auto) 6.7 Eos % (Auto) 0.4 Baso % (Auto) 0.3 Immature Gran # (Auto) 0.1 Neut # 10.0 H Lymph # 0.7 [place] # 0.8 Eos # 0.1 Baso # 0.0 Puncture Site Rrad O2 Saturation 95.0 ABG pH 7.527 H* ABG pCO2 24.4 L ABG pO2 64.0 L ABG HCO3 20.3 L ABG Total CO2 21 L ABG Base Excess -2 Mayito Test + FiO2 % 21.0 Lactic Acid 5.5 Procalcitonin 06/28/17 06:12 WBC RBC Hgb Hct MCV MCH MCHC RDW Coeff of Addison Plt Count Immature Gran % (Auto) Neut % (Auto) Lymph % (Auto) [place] % (Auto) Eos % (Auto) Baso % (Auto) Immature Gran # (Auto) Neut # Lymph # [place] # Eos # Baso # Puncture Site O2 Saturation ABG pH ABG pCO2 ABG pO2 ABG HCO3 ABG Total CO2 ABG Base Excess Mayito Test FiO2 % Lactic Acid Procalcitonin 0.68 Orders Category Date Time Status ABG DRAW REQUEST Stat CARDIO 06/28/17 05:33 Completed EKG-(ED ONLY) Stat CARDIO 06/28/17 05:33 Completed ORDER H&H 1HR POST TRANSFUSION ONCE CARE 06/28/17 06:50 Active PRBC LEUKOREDUCED ONCE CARE 06/28/17 06:50 Active IV [ED IV/MEDIPORT/POWERPORT] .ONCE EMERGENCY 06/28/17 05:34 Active ABG Stat LAB 06/28/17 05:33 Completed BLOOD CULTURE (ED ONLY) Stat LAB 06/28/17 06:12 Received CBC W/ AUTO DIFF Stat LAB 06/28/17 06:12 Completed COMPREHENSIVE METABOLIC PANEL Stat LAB 06/28/17 06:12 Received CREATINE KINASE Stat LAB 06/28/17 06:12 Received FERRITIN Stat LAB 06/28/17 Ordered IRON AND TIBC Stat LAB 06/28/17 Ordered LACTIC ACID Stat LAB 06/28/17 06:12 Completed PACKED CELLS Stat LAB 06/28/17 06:50 Ordered PROCALCITONIN Stat LAB 06/28/17 06:12 Completed TROPONIN I Stat LAB 06/28/17 06:12 Received TYPE AND SCREEN Stat LAB 06/28/17 06:50 Ordered URINALYSIS C & S IF INDICATED Stat LAB 06/28/17 06:48 Received 0.9 % Sodium Chloride [Saline Flush] MEDS 06/28/17 05:34 Active 1 syr IVF PRN PRN Acetaminophen [Tylenol] MEDS 06/28/17 06:52 Discontinued 650 mg PO ONCE STA Bumetanide [Bumex] MEDS 06/28/17 05:36 Discontinued 1 mg IVP ONCE STA Diphenhydramine HCl [Benadryl] MEDS 06/28/17 06:52 Discontinued 25 mg PO ONCE STA Vancomycin HCl [Vancomycin] MEDS 06/28/17 05:47 Discontinued 1,000 mg .ROUTE .STK-MED ONE Vancomycin HCl [Vancomycin] MEDS 06/28/17 06:53 Discontinued 500 mg .ROUTE .STK-MED ONE Vancomycin HCl [Vancomycin] 1,000 mg MEDS 06/28/17 05:35 Active 0.9 % Sodium Chloride [Sodium Chloride] [address] CHEST W/O CONTRAST Stat RADS 06/28/17 05:[address] HEAD W/O CONTRAST Stat RADS 06/28/17 05:34 Completed Medications Generic Name Dose Route Start Last Admin Trade Name Freq PRN Reason Stop Dose Admin Vancomycin HCl 1,000 mg/ 200 mls @ 100 mls/hr 06/28/17 05:35 06/28/17 06:06 Sodium Chloride IV 06/28/17 07:34 100 mls/hr ONCE STA Administration Sodium Chloride 1 syr 06/28/17 05:34 06/28/17 06:05 Saline Flush IVF 1 syr PRN PRN Administration To flush IV Discontinued Medications Generic Name Dose Route Start Last Admin Trade Name Freq PRN Reason Stop Dose Admin Acetaminophen 650 mg 06/28/17 06:52 Tylenol PO 06/28/17 06:53 ONCE STA Bumetanide 1 mg 06/28/17 05:36 06/28/17 06:05 Bumex IVP 06/28/17 05:37 1 mg ONCE STA Administration Diphenhydramine HCl 25 mg 06/28/17 06:52 Benadryl PO 06/28/17 06:53 ONCE STA Vital Signs: Temp Pulse Resp BP Pulse Ox 06/28/17 06:43 99 H 25 H 143/72 H 94 L 06/28/17 05:24 100.5 F H 113 H 28 H 135/70 92 L Departure - Departure Time of Disposition: 06:54 Disposition: TSF SHORT-TRM HOSP Discharge Problem: Encephalopathy Sepsis Qualifiers: Sepsis type: sepsis due to unspecified organism Qualified Code(s): A41.9 - Sepsis, unspecified organism Diabetic foot ulcer Qualifiers: Diabetic foot ulcer location: unspecified part of foot Diabetes mellitus type: type 2 Laterality: left Non-pressure ulcer stage: with other severity Qualified Code(s): E11.621 - Type 2 diabetes mellitus with foot ulcer; L97.528 - Non- pressure chronic ulcer of other part of left foot with other specified severity ; L97.528 - Non-pressure chronic ulcer of other part of left foot with other specified severity Condition: Stable Pt referred to PMD for follow-up: Yes Allergies/Adverse Reactions: Allergies Iodinated Contrast- Oral and IV Dye [Iodinated Contrast Media - Oral and] Adverse Reaction (Verified 10/02/16 04:18) KIDNEYS FAIL Home Medications: Ambulatory Orders Sitagliptin Phosphate [Januvia] 25 mg PO DAILY 06/13/15 Aspirin [Aspirin EC] 81 mg PO DAILY 11/22/15 Atorvastatin Calcium [Lipitor] 10 mg PO BEDTIME 11/22/15 Acetaminophen [Tylenol] 650 mg PO Q4H PRN 08/27/16 Ergocalciferol (Vitamin D2) [Drisdol] 50,000 unit PO MONTHLY 08/27/16 Glimepiride [Amaryl] 2 mg PO BID 08/27/16 Albuterol Sulfate 0.083% Neb [Albuterol 0.083% Neb] 1 vial NEB Q4H PRN 09/23/16 Ipratropium/Albuterol Neb [Duoneb] 1 vial NEB RTQ4H PRN #90 vial.neb 09/23/16 Bumetanide 5 mg PO DAILY 06/28/17 Carvedilol [Coreg] 25 mg PO BIDWM 06/28/17 Doxycycline Hyclate 100 mg PO BID 06/28/17 Transfer Form Completed: Yes Disposition Discussed With: Patient, Family
[2017-06-28 05:49] VITALS: BMI 32.2
--- NOTE | 2017-06-28 06:20 | CT ---
Exam: CT of the chest without contrast History: Dyspnea Technique: [address] of the chest FINDINGS: Moderate sized bilateral pleural effusions. Mild emphysematous change. No infiltrative o r consolidative opacities. Minor compressive atelectasis. Atherosclerotic calcification of the aort a and coronary arteries. No aortic aneurysm. No acute chest wall abnormalities are seen. No acute findings of the upper abdomen. Impression: 1. Moderate bilateral pleural effusions greatest on the right, nonspecific. 2. Mild compressive atelectasis. No infiltrative opacities. 3. Mild emphysematous change
--- NOTE | 2017-06-28 06:25 | CT ---
EXAM: CT brain without contrast HISTORY: Confusion TECHNIQUE: CT of the brain without intravenous contrast FINDINGS: There is no acute hemorrhage midline shift or mass effect. No hydrocephalus or abnormal e xtra-axial fluid collection. Chronic microvascular change of the periventricular white matter, mild. The bony cranium appears normal. The visualized paranasal sinuses are clear. Soft tissues without s ignificant abnormality. IMPRESSION: 1. Minor leukomalacia changes. No acute intracranial abnormality is seen.
[2017-06-28] MEDS ORDERED: TYLENOL PO STA (06:52)
[2017-06-28] MEDS ORDERED: BENADRYL PO STA (06:52)
[2017-06-28 13:54] VITALS: BP 119/60; TEMP 98
[2017-06-28] MEDS ORDERED: ROCEPHIN 1 GM in SODIUM CHLORIDE 50 ML IV STA (14:06)
[2017-06-28] MEDS ORDERED: ROCEPHIN ONE (14:10)
== END 2017-06-28 15:30 | disposition short-term general hospital (02) ==
LOC: ED 05:16
DX: G93.40 Encephalopathy, unspecified (principal); A41.9 Sepsis, unspecified organism; E11.621 Type 2 diabetes mellitus with foot ulcer; L97.528 Non-pressure chronic ulcer of other part of left foot with other specified severity; R06.02 Shortness of breath; I10 Essential (primary) hypertension; R53.1 Weakness; Z72.0 Tobacco use; Z79.899 Other long term (current) drug therapy
CPT/HCPCS: 36415; 36430; 80053; 81001; 82550; 82553; 82728; 82803; 83540; 83550; 83605; 84145; 84484; 85025; 86850; 86900; 86922; 87040; 93005; 93010; 96365; 96366; 96375; 99285

== ENCOUNTER 2018-08-10 07:31 | Emergency (ER) ==
[2018-08-10 07:42] VITALS: BP 187/93; TEMP 99.6
[2018-08-10 08:02] VITALS: BMI 33.9
[2018-08-10] MEDS ORDERED: DUONEB NEB STA (08:10)
[2018-08-10] MEDS ORDERED: ZESTRIL PO STA (08:10)
--- NOTE | 2018-08-10 09:28 | CT ---
EXAM: CT of the chest without contrast History: Short of breath Comparison: Chest CT 06/28/2017 Technique: Multiplanar CT images through the thorax were obtained without the administration of IV c ontrast Findings: Heart is mildly enlarged. Coronary calcifications. No pericardial effusion. No thoracic aortic aneurysm. No axillary lymphadenopathy. A few mildly enlarged mediastinal lymph nodes measur ing up to 1.3 cm. Evaluation for hilar lymph nodes is limited due to the lack of contrast administra tion. Interval development of multiple bilateral pulmonary nodules with a tree-in-bud configuration. Small left pleural effusion. Mild to moderate emphysema. No pneumothorax. Within the visualized upper abdomen, no acute findings. There is pancreatic atrophy. Partially visu alized left renal cyst. No acute osseous abnormalities. Impression: 1. Multiple new bilateral pulmonary nodules with tree-in-bud configuration most compatible with diff use bronchopneumonia. Metastatic disease is not excluded and follow-up chest CT is recommended in 1- 3 months after treatment for pneumonia. 2. Emphysema. 3. Small left pleural effusion. 4. Mildly enlarged mediastinal lymph nodes are nonspecific. Close attention to on follow-up recomme nded. 5. Coronary artery disease
[2018-08-10] MEDS ORDERED: ROCEPHIN 2 GM in SODIUM CHLORIDE 100 ML IV STA (09:42)
--- NOTE | 2018-08-10 09:50 | ED.PDOC ---
General ED Provider: Dr. ALEXANDRO REGALADO Chief Complaint: Shortness of Air Stated Complaint: shortness of breath Time Seen by Physician: 07:40 Mode of Arrival: Walk-In Information Source: Patient, Family Exam Limitations: No limitations Primary Care Provider: JOSSELINE FLORES Nursing and Triage Documentation Reviewed and Agree: Yes Does patient meet sepsis criteria?: No If yes, has appropriate treatment been initiated?: No System Inflammatory Response Syndrome: Not Applicable Sepsis Protocol: For patient's 13 years and over: Temp is 96.8 and below OR 101 and greater Pulse >90 BPM Resp >20/minute Acutely Altered Mental Status Are patient's symptoms suggestive of a new infection, such as: -Pneumonia -Skin, Soft Tissue -Endocarditis -UTI -Bone, Joint Infection -Implantable Device -Acute Abdominal Infection -Wound Infection -Meningitis -Blood Stream Catheter Infection -Unknown Respiratory Complaint Exam - Respiratory Complaint/Exam Onset/Duration: 0740 Symptoms Are: Still present Timing: Intermittent Initial Severity: Mild Current Severity: Mild Location: Nose, Throat, Chest Character: Reports: Non-productive cough, Dry cough Alleviating: Reports: Bronchodilators, Upright position Associated Signs and Symptoms: Reports: Dyspnea, Chills, URI, Nasal congestion. Denies: Rapid breathing, Fever, Chest pain, Pleuritic chest pain, Wheezing, Hemoptysis, Dizziness, Calf pain, Calf swelling, Edema, Hoarseness, Sinus discomfort, Vomiting, Sore throat, Weight loss, Decreased oral intake, Increased thirst, Increased appetite, Increased urination Related History: Reports: Similar episode (flu like symptoms 2 weeks ) History of Healthcare-Acquired Pneumonia: No Related Surgical History: Reports: None Pulmonary Embolism Risk Factors: None Cardiac Risk Factors: Reports: Diabetes Pseudomonas Risk Factors: Reports: None Tuberculosis Risk Factors: Reports: None Status Asthmaticus Risk Factors: Reports: None Home Oxygen Use: No Recent Stress Test: No Recent Echo/LV Function: No Current Antibiotic Use: No Current Asthma Medication Use: No Respiratory Distress: None Inadequate Respiratory Effort: No Dysphagia Present: No Stridor Present: No JVD Present: No Accessory Muscle Use: No Retractions: Not Present Diminished Breath Sounds: No Differential Diagnoses: CHF, Pulmonary Edema, Pneumonia, Bronchitis, URI Non-Traumatic Chest Pain Syncope: EKG Performed Review of Systems - Review Of Systems Constitutional: Reports: No symptoms, Chills, Malaise, Weakness, Loss of appetite Eyes: Reports: No symptoms Ears, Nose, Mouth, Throat: Reports: No symptoms Respiratory: Reports: Cough, Short of air Cardiac: Reports: No symptoms GI: Reports: No symptoms : Reports: No symptoms Musculoskeletal: Reports: No symptoms Skin: Reports: No symptoms Neurological: Reports: No symptoms Endocrine: Reports: No symptoms Hematologic/Lymphatic: Reports: No symptoms All Other Systems: Reviewed and Negative Past Medical History - Past Medical History Previously Healthy: Yes Endocrine: Reports: DM 2 Cardiovascular: Reports: None Respiratory: Reports: None Hematological: Reports: None Gastrointestinal: Reports: None Genitourinary: Reports: None Neuro/Psych: Reports: None Musculoskeletal: Reports: Other Cancer: Reports: None - Surgical History General Surgical History: Reports: None - Family History Family History: Reports: None - Social History Smoking Status: Former smoker, Chews tobacco Hx Substance Use: No Alcohol Screening: None Physical Exam - Physical Exam Appearance: Ill-appearing Ill-appearing: Moderate Pain Distress: Mild Eyes: JORY, EOMI, Conjunctiva clear ENT: Ears normal, Nose normal, Oropharynx normal Respiratory: Rhonchi Cardiovascular: RRR, Pulses normal, No rub, No murmur GI/: Soft, Nontender, No masses, Bowel sounds normal, No Organomegaly Musculoskeletal: Normal strength, ROM intact, No edema, No calf tenderness Skin: Warm, Dry, Normal color Neurological: Sensation intact, Motor intact, Reflexes intact, Cranial nerves intact, Alert, Oriented Psychiatric: Affect appropriate, Mood appropriate Interpretation - Radiology Interpretation Radiology Interpretation By: Radiologist Radiology Results: Positive (bronchopneumonia/ mets) Re-Evaluation - Re-Evaluation Time of Re-Evaluation: 09:51 Status: Improved Vital Signs Stable: Yes Pain Level: 0 Appearance: NAD Lungs: Clear Skin: Warm and Dry Neuro: Alert and Oriented X3 CV: RRR Critical Care Note - Critical Care Note Total Time (mins): 0 Course - Course Hematology/Chemistry: 08/10/18 08:30 08/10/18 08:30 Orders, Labs, Meds: Lab Review 08/10/18 08/10/18 08/10/18 08:09 08:20 08:30 WBC 8.07 RBC 3.81 L Hgb 11.1 L Hct 32.5 L MCV 85.3 MCH 29.1 MCHC 34.2 RDW Coeff of Addison 13.2 Plt Count 255 Immature Gran % (Auto) 0.4 Neut % (Auto) 77.3 Lymph % (Auto) 11.6 [place] % (Auto) 8.6 Eos % (Auto) 1.9 Baso % (Auto) 0.2 Immature Gran # (Auto) 0.0 Neut # (Auto) 6.2 Lymph # (Auto) 0.9 [place] # (Auto) 0.7 Eos # (Auto) 0.2 Baso # (Auto) 0.0 PT INR APTT Puncture Site R rad O2 Saturation 88.0 L ABG pH 7.384 ABG pCO2 32.7 L ABG pO2 55.0 L* ABG HCO3 19.5 L ABG Total CO2 20 L ABG Base Excess -6 L Mayito Test + O2 Delivery Device Ra FiO2 % 21.0 Sodium Potassium Chloride Carbon Dioxide Anion Gap BUN Creatinine Estimated GFR (MDRD) BUN/Creatinine Ratio Glucose Lactic Acid Calcium Total Bilirubin AST ALT Alkaline Phosphatase Total Creatine Kinase CK-MB (CK-2) CK-MB (CK-2) % Troponin I Total Protein Albumin Globulin Albumin/Globulin Ratio Procalcitonin TSH Free T4 Influ A Molecular Assay Negative by naat Influ B Molecular Assay Negative by naat 08/10/18 08/10/18 08/10/18 08:30 08:30 08:30 WBC RBC Hgb Hct MCV MCH MCHC RDW Coeff of Addison Plt Count Immature Gran % (Auto) Neut % (Auto) Lymph % (Auto) [place] % (Auto) Eos % (Auto) Baso % (Auto) Immature Gran # (Auto) Neut # (Auto) Lymph # (Auto) [place] # (Auto) Eos # (Auto) Baso # (Auto) PT 9.2 L INR 0.92 APTT 28.5 Puncture Site O2 Saturation ABG pH ABG pCO2 ABG pO2 ABG HCO3 ABG Total CO2 ABG Base Excess Mayito Test O2 Delivery Device FiO2 % Sodium 135.0 Potassium 4.48 Chloride 100.0 Carbon Dioxide 25.4 Anion Gap 14.08 BUN 33.9 H Creatinine 2.56 H Estimated GFR (MDRD) 26.00 BUN/Creatinine Ratio 13.24 Glucose 289.8 H Lactic Acid Calcium 7.74 L Total Bilirubin 0.34 AST 41.1 ALT 29.5 Alkaline Phosphatase 107.0 Total Creatine Kinase 814.6 H CK-MB (CK-2) 4.680 H CK-MB (CK-2) % 0.5700 Troponin I 0.017 Total Protein 6.77 Albumin 3.17 L Globulin 3.60 Albumin/Globulin Ratio 0.88 Procalcitonin 0.15 TSH Free T4 Influ A Molecular Assay Influ B Molecular Assay 08/10/18 08/10/18 08/10/18 08:30 08:30 08:40 WBC RBC Hgb Hct MCV MCH MCHC RDW Coeff of Addison Plt Count Immature Gran % (Auto) Neut % (Auto) Lymph % (Auto) [place] % (Auto) Eos % (Auto) Baso % (Auto) Immature Gran # (Auto) Neut # (Auto) Lymph # (Auto) [place] # (Auto) Eos # (Auto) Baso # (Auto) PT INR APTT Puncture Site O2 Saturation ABG pH ABG pCO2 ABG pO2 ABG HCO3 ABG Total CO2 ABG Base Excess Mayito Test O2 Delivery Device FiO2 % Sodium Potassium Chloride Carbon Dioxide Anion Gap BUN Creatinine Estimated GFR (MDRD) BUN/Creatinine Ratio Glucose Lactic Acid 0.86 Calcium Total Bilirubin AST ALT Alkaline Phosphatase Total Creatine Kinase CK-MB (CK-2) CK-MB (CK-2) % Troponin I Total Protein Albumin Globulin Albumin/Globulin Ratio Procalcitonin TSH 1.650 Free T4 1.46 Influ A Molecular Assay Influ B Molecular Assay Orders Category Date Time Status ABG DRAW REQUEST Stat CARDIO 08/10/18 08:09 Completed EKG-(ED ONLY) Stat CARDIO 08/10/18 08:08 Completed NEBULIZER TREATMENT Stat CARDIO 08/10/18 08:10 Completed ED IV/MEDIPORT/POWERPORT .ONCE EMERGENCY 08/10/18 08:08 Active ABG Stat LAB 08/10/18 08:09 Completed BLOOD CULTURE Stat LAB 08/10/18 08:40 Received CBC W/ AUTO DIFF Stat LAB 08/10/18 08:30 Completed COMPREHENSIVE METABOLIC PANEL Stat LAB 08/10/18 08:30 Completed CREATINE KINASE Stat LAB 08/10/18 08:30 Completed FLU A/B MOLECULAR Stat LAB 08/10/18 08:20 Completed FREE T4 (FREE THYROXINE) Stat LAB 08/10/18 08:30 Completed LACTIC ACID Stat LAB 08/10/18 08:40 Completed MOLECULAR GROUP A STREP Stat LAB 08/10/18 08:20 Completed PARTIAL THROMBOPLASTIN TIME Stat LAB 08/10/18 08:30 Completed PROCALCITONIN Stat LAB 08/10/18 08:30 Completed PT WITH INR Stat LAB 08/10/18 08:30 Completed THYROID STIMULATING HORMONE Stat LAB 08/10/18 08:30 Completed TROPONIN I Stat LAB 08/10/18 08:30 Completed 0.9 % Sodium Chloride [Saline Flush] MEDS 08/10/18 08:07 Active 1 syr IVF PRN PRN Ceftriaxone Sodium [Rocephin] 2 gm MEDS 08/10/18 09:42 Ordered 0.9 % Sodium Chloride [Sodium Chloride] 100 ml IV ONCE Ipratropium/Albuterol Neb [Duoneb] MEDS 08/10/18 08:10 Discontinued 1 vial NEB ONCE STA Lisinopril [Zestril] MEDS 08/10/18 08:10 Discontinued 20 mg PO ONCE STA CT CHEST W/O CONTRAST Stat RADS 08/10/18 08:08 Completed Medications Generic Name Dose Route Start Last Admin Trade Name Freq PRN Reason Stop Dose Admin Ceftriaxone Sodium 2 gm/ 100 mls @ 100 mls/hr 08/10/18 09:42 Sodium Chloride IV 08/10/18 10:41 ONCE STA Sodium Chloride 1 syr 08/10/18 08:07 08/10/18 08:45 Saline Flush IVF 1 syr PRN PRN Administration To flush IV Discontinued Medications Generic Name Dose Route Start Last Admin Trade Name Freq PRN Reason Stop Dose Admin Albuterol/Ipratropium 1 vial 08/10/18 08:10 08/10/18 08:25 Duoneb NEB 08/10/18 08:11 1 vial ONCE STA Administration Lisinopril 20 mg 08/10/18 08:10 08/10/18 08:43 Zestril PO 08/10/18 08:11 20 mg ONCE STA Administration Vital Signs: Temp Pulse Resp BP Pulse Ox 08/10/18 07:33 99.6 F 107 H 24 187/93 H 90 L Departure - Departure Time of Disposition: 09:51 Disposition: TSF SHORT-TRM HOSP Discharge Problem: Shortness of breath Instructions: Shortness of Breath (ED), Dyspnea (ED) Condition: Good Pt referred to PMD for follow-up: Yes IPMP verified?: No Additional Instructions: Please call your Family Physician as soon as possible to schedule a follow-up appointment. Allergies/Adverse Reactions: Allergies adhesive Adverse Reaction (Verified 08/10/18 07:41) SKIN IS SENSITIVE TO ADHESIVES Iodinated Contrast- Oral and IV Dye [Iodinated Contrast Media - Oral and] Adverse Reaction (Verified 08/10/18 07:41) KIDNEYS FAIL Home Medications: Ambulatory Orders Sitagliptin Phosphate [Januvia] 100 mg PO DAILY 06/13/15 Aspirin [Aspirin EC] 81 mg PO DAILY 11/22/15 Atorvastatin Calcium [Lipitor] 10 mg PO BEDTIME 11/22/15 Acetaminophen [Tylenol] 650 mg PO Q4H PRN 08/27/16 Ergocalciferol (Vitamin D2) [Drisdol] 50,000 unit PO WEEKLY 08/27/16 Glimepiride [Amaryl] 2 mg PO BID 08/27/16 Ipratropium/Albuterol Neb [Duoneb] 1 vial NEB RTQ4H PRN #90 vial.neb 09/23/16 Bumetanide 2 mg PO DAILY 06/28/17 Carvedilol [Coreg] 25 mg PO DAILY 06/28/17 B Complex W-C No.20/Folic Acid [Virt-Caps Softgel] 1 mg PO DAILY 08/10/18 Calcitriol 0.25 mcg PO EVERY OTHER DAY 08/10/18 Carvedilol 12.5 mg PO BEDTIME 08/10/18 Lisinopril [Zestril] 5 mg PO BEDTIME 08/10/18 Pantoprazole Sodium 40 mg PO BID 08/10/18
[2018-08-10] MEDS ORDERED: ROCEPHIN ONE (09:51)
[2018-08-10] MEDS ORDERED: LASIX IVP STA (09:53)
== END 2018-08-10 10:50 | disposition short-term general hospital (02) ==
LOC: ED 07:31
DX: R06.02 Shortness of breath (principal); R05 Cough; R06.00 Dyspnea, unspecified; J06.9 Acute upper respiratory infection, unspecified; R09.81 Nasal congestion; R53.1 Weakness; R63.0 Anorexia; I50.9 Heart failure, unspecified; N19 Unspecified kidney failure
CPT/HCPCS: 36415; 80053; 82550; 82553; 82803; 83605; 84145; 84439; 84443; 84484; 85025; 85610; 85730; 87040; 87502; 87651; 93005; 93010; 94640; 96365; 96375; 99285